=== PATIENT | female | born 1960 | race Caucasian/White ===

== ENCOUNTER → 2019-05-25 15:13 | Outpatient (BNVA) | payer OTHER, SELFPAY | PROVIDERS: Family Provider Nurse Practitioner Family; PCP Nurse Practitioner Family; Visit Provider Specialist | DX: S42.202A Unspecified fracture of upper end of left humerus, initial encounter for closed fracture (principal); X58.XXXA Exposure to other specified factors, initial encounter | CPT/HCPCS: 73030 ==

== ENCOUNTER → 2019-06-23 10:11 | Outpatient (BNVA) | payer OTHER, SELFPAY | PROVIDERS: Family Provider Nurse Practitioner; PCP Nurse Practitioner Family; Visit Provider Specialist | DX: S42.215A Unspecified nondisplaced fracture of surgical neck of left humerus, initial encounter for closed fracture (principal); W19.XXXA Unspecified fall, initial encounter | CPT/HCPCS: 73030 ==

== ENCOUNTER → 2019-07-20 15:35 | Outpatient (BNVA) | payer OTHER, SELFPAY | PROVIDERS: Family Provider Nurse Practitioner; PCP Nurse Practitioner Family; Visit Provider Specialist | DX: S42.212A Unspecified displaced fracture of surgical neck of left humerus, initial encounter for closed fracture (principal); X58.XXXA Exposure to other specified factors, initial encounter | CPT/HCPCS: 73030 ==

== ENCOUNTER 2019-08-03 15:07 | Outpatient (CLI) | payer OTHER, SELFPAY ==
--- NOTE | 2019-08-03 17:30 | MR_ITS ---
WS: [id number] MRI LEFT SHOULDER HISTORY: pain COMPARISON: Shoulder radiograph 07/20/2019 TECHNIQUE: Multiplanar sequences of the shoulder joint are submitted. Examination was terminated early due to patient's pain and inability to continue. Increased T2 signal humeral head and neck. There is a comminuted fracture with healing and multiple f ragments which are not significantly displaced. Additional abnormal signal at the AC joint. There is increase fluid like signal along the acromioclavicular ligament and soft tissue edema. Small amount o f fluid in the subacromial and subdeltoid bursa. No displacement. Mild encroachment upon the myotendi nous insertion of the supraspinatus by the AC joint arthritis. Incomplete evaluation of the rotator cuff as patient was unable to complete the examination due to pa in. There is increased signal in the distal supraspinatus tendon along the articular surface highly s uspicious for tear as seen on the proton density sequence. No full-thickness tear. There is adjacent mild tendinopathy. Additional insertion site increased T2 signal involving the infraspinatus. Subscap ularis is intact. Biceps tendon remains in normal position. No os acromion. No muscle edema or atroph y no labral tear identified. MR/MR shoulder LT wo con* [id number] IMPRESSION: 1. Study terminated early due to patient's pain and discomfort. 2. Comminuted humeral head/neck fracture without displacement. 3. Mild acute acromioclavicular ligament sprain. 4. Partial insertion site tear infraspinatus and highly suspicious for small a rticular surface tear involving the distal supraspinatus.
== END 2019-08-03 15:08 | disposition home or self-care (01) ==
LOC: RADSHAW 15:10
PROVIDERS: Family Provider Nurse Practitioner; PCP Nurse Practitioner Family; Visit Provider Specialist
DX: S42.292A Other displaced fracture of upper end of left humerus, initial encounter for closed fracture (principal); X58.XXXA Exposure to other specified factors, initial encounter
CPT/HCPCS: 73221

== ENCOUNTER → 2020-04-18 16:16 | Outpatient (BNVA) | payer OTHER, SELFPAY | PROVIDERS: Family Provider Nurse Practitioner; PCP Nurse Practitioner Family; Visit Provider Specialist | DX: S42.292D Other displaced fracture of upper end of left humerus, subsequent encounter for fracture with routine healing (principal); M75.42 Impingement syndrome of left shoulder | CPT/HCPCS: 73030 ==

== ENCOUNTER → 2021-04-23 09:05 | Outpatient (BNVA) | payer OTHER, SELFPAY | PROVIDERS: Family Provider Nurse Practitioner; PCP Nurse Practitioner Family; Visit Provider Dermatology | DX: Z01.89 Encounter for other specified special examinations (principal) ==

== ENCOUNTER 2022-06-21 21:28 | Inpatient (IN) | payer OTHER, SELFPAY ==
[2022-06-21 21:35] VITALS: BP 154/81; PULSE 84; RESP 16; TEMP 36.9; O2SAT 92
--- NOTE | 2022-06-21 22:27 | XRR_ITS ---
PROCEDURE INFORMATION: Exam: XR Chest Exam date and time: 06/21/2022 10:41 PM Age: 61 years old Clinical indication: Other: Upper abd pain w/burping; Patient HX: PT C/O upper abdomen pain with a lot of burping. ; Additional info: SOB TECHNIQUE: Imaging protocol: Radiologic exam of the chest. Views: 1 view. COMPARISON: CR XR shoulder LT min 2V* [id number] 04/18/2020 4:22 PM FINDINGS: Lungs: The lungs are hypoinflated. Moderate pulmonary vascular congestion. Pleural spaces: Small bilateral pleural effusions. Bibasilar atelectasis is seen adjacent to the pleural fluid. Heart/Mediastinum: Unremarkable. No cardiomegaly. Bones/joints: Unremarkable. XR/XR chest 1V portable [id number] IMPRESSION: Moderate pulmonary vascular congestion with small bilateral pleural effusions with adjacent bibasilar atelectasis.
--- NOTE | 2022-06-21 22:27 | CTR_ITS ---
PROCEDURE INFORMATION: Exam: CT Abdomen And Pelvis With Contrast Exam date and time: 06/21/2022 11:24 PM Age: 61 years old Clinical indication: Abdominal pain; Prior surgery; Surgery date: 6+ months; Surgery type: Appy; Patient HX: Continual belching, SOB; Additional info: Abd pain TECHNIQUE: Imaging protocol: Computed tomography of the abdomen and pelvis with contrast. Radiation optimization: All CT scans at this facility use at least one of these dose optimization techniques: automated exposure control; mA and/or kV adjustment per patient size (includes targeted exams where dose is matched to clinical indication); or iterative reconstruction. Contrast material: OMNI 350; Contrast volume: 75 ml; Contrast route: INTRAVENOUS (IV); Other protocol: This patient has received 0 known CTs and 0 known cardiac nuclear medicine studies in the 12 months prior to the current study. COMPARISON: CR (CHEST, ) 06/21/2022 10:41 PM RADIATION DOSE METRICS: Total DLP (mGy-cm): 503.86 FINDINGS: Pleural spaces: Moderate bilateral pleural effusions are present, [id number]-[id number]-pspy-left . There is consolidation with air bronchograms in the right middle lobe, lingula in the bilateral lower lobes adjacent to the pleural fluid. Liver: The liver has heterogeneous density likely related to passive hepatic venous congestion. Gallbladder and bile ducts: The gallbladder wall is thickened to 4 mm. No gallstones are seen. Pancreas: Normal. No ductal dilation. Spleen: Normal. No splenomegaly. Adrenal glands: Normal. No mass. Kidneys and ureters: The left kidney has multifocal renal cortical scarring and a 5 mm nephrolith in the midpole. There is also mild scarring in the upper pole of the right kidney. Stomach and bowel: Unremarkable. No obstruction. No mucosal thickening. Appendix: Appendix not visualized consistent with history of appendectomy. Intraperitoneal space: Small volume ascites. Vasculature: Unremarkable. No abdominal aortic aneurysm. Lymph nodes: Unremarkable. No enlarged lymph nodes. Urinary bladder: Unremarkable as visualized. Reproductive: Uterine fibroids are present. Bones/joints: Unremarkable. No acute fracture. Soft tissues: Mild diffuse anasarca. CT/CT abdomen pelvis w con* [id number] IMPRESSION: 1. Moderate aqoga-lynqypi-lrnf-left pleural effusions with adjacent consolidation in the bilateral lung bases suspicious for pneumonia. Correlate with clinical findings. 2. Small volume ascites with mild diffuse anasarca. 3. Gallbladder wall thickening which is nonspecific and may be secondary. Correlate clinically. 4. Heterogeneous liver density likely related to passive hepatic venous congestion.
[2022-06-21 22:37] LABS: Basophils % 0.7 %; Eosinophils # 0.1 10^3/uL (0.0-0.8); Eosinophils % 2.3 %; Hematocrit 45.3 % (37.0-47.0); Hemoglobin 14.6 g/dL (11.5-15.3); Lymphocytes # 1.8 10^3/uL (0.8-4.8); Lymphocytes % 30.1 %; Mean Corpuscular HGB Conc 32.2 g/dL (30.0-36.0); Mean Corpuscular Hemoglobin 28.1 pg (28.0-34.0); Mean Corpuscular Volume 87.1 fl (81-99); Mean Platelet Volume 10.2 fL (7.4-10.4); Monocytes # 0.4 10^3/uL (0.2-0.9); Monocytes % 5.7 %; Neutrophils # 3.73 10^3/uL (1.8-7.7); Nucleated Red Blood Cells % 0 %; Platelet Count 268 10^3/cmm (130-400); Red Cell Distribution Width 13.7 % (12.1-15.1); White Blood Count 6.1 10^3/uL (4.0-10.0)
[2022-06-21] MEDS: lidocaine 2% viscous 15 ML, aluminum-mag hydrox-simethicon 30 ML, sucralfate oral liq 1 GM PO (22:47)
[2022-06-21 22:54] LABS: Troponin(5th) Baseline 28 ng/L (0-10)
[2022-06-21 22:55] LABS: Lactate (Lactic Acid level) 1.2 mmol/L (0.5-2.2)
[2022-06-21 22:59] LABS: Alanine Aminotransferase 14 U/L (0-33); Albumin Level 3.6 g/dL (3.5-5.2); Alkaline Phosphatase 112 U/L (35-105); Anion Gap 10.8 (5-19); Aspartate Amino Transferase 15 U/L (0-32); Blood Urea Nitrogen 7 mg/dL (8-23); C Reactive Protein 3.4 mg/L (0.0-4.9); Calcium 9.3 mg/dL (8.5-10.5); Carbon Dioxide 34 mmol/L (22-29); Chloride 100 mmol/L (98-107); Creatine Phosphokinase 53 U/L (26-192); Creatinine Clr Calc Pharmacy 75.3951; Globulin 2.3 g/dL (1.3-4.6); Glomerular Filtration Rate 85.1 mL/min (90-130); Glucose 266 mg/dL (65-115); Lipase 34 U/L (13-60); NT Pro B Type Natriuretic Pept 5511 pg/mL (0-125); Osmolality Calculated 301 mOsm/kg (285-295); Sodium 142 mmol/L (136-145); Total Bilirubin 0.7 mg/dL (0.15-1.2); Total Protein 5.9 g/dL (6.6-8.7)
[2022-06-21 23:04] LABS: Potassium 2.8 mmol/L (3.5-5.1)
[2022-06-21] MEDS: iohexol 350 mg/mL 500 mL Btl (per mL) IV (23:17)
[2022-06-21] MEDS: potassium chloride ER 20 mEq Tablet 40 MEQ PO (23:48)
[2022-06-21] MEDS: FUROsemide 10 mg/mL SDV 10mL 60 MG IVP (23:49)
[2022-06-21] MEDS: potassium chloride premix 100 ML 50 MEQ IV (23:56)
[2022-06-22] VITALS (9 sets, daily range): BP systolic 95–138; BP diastolic 57–95; PULSE 74–86; RESP 16–20; TEMP 35.9–37.2; O2SAT 90–97
--- NOTE | 2022-06-22 00:32 | W.ED.EXTPRO ---
HPI - Extremity Problem General: Chief complaint: Extremity Problem,Nontraumatic Stated complaint: swelling legs, weakness Time Seen by Provider: 06/21/22 21:55 History of Present Illness: 61-year-old female presenting to the emergency department with multiple complaints including lower extremity swelling, fatigue, frequent belching, and bad gallbladder . Evidently she had an outpatient work-up at an outside facility including an EGD and gallbladder ultrasound. Gallbladder ultrasound showed sludge in the gallbladder. She does not have the results of the EGD yet. She complains of lower extremity swelling, and some fatigue with shortness of breath. She denies any overt chest pain. Room air saturations are 84 to 86% here. She does not use oxygen. She denies cough or fever. MD Complaint: extremity swelling Onset (ago): day(s) Pain Consistency: constant Location: left, right and lower extremity Quality: other Radiation: none Relieving factors: elevation Associated symptoms: Reports short of breath; Deny chest pain or fever(s) Review of Systems Const: Reports: change in weight; Denies: fever(s) ENMT: Denies: throat pain Card: Denies: chest pain or palpitations Resp: Reports: dyspnea; Denies: productive cough or non-productive cough GI: Reports: abdominal pain, nausea and heartburn; Denies: vomiting or diarrhea PFSH ED PFSH: Medical History (Updated 06/22/22 @ 00:41 by Marshall Ro DO) Diabetes Social History Smoking and tobacco status: never smoked Alcohol intake: never Physical Exam Const: GENERAL APPEARANCE: cooperative and frail appearing HENMT: COMMON NORMALS: normocephalic HEAD & SCALP: normocephalic FACE & SINUS: normal facial exam and face symmetric Eye: COMMON NORMALS: Equal, round and reactive pupils present and EOMs intact bilaterally PUPIL: Yes Equal, round and reactive pupils present Chest: CHEST: Yes Symmetrical chest wall rise Resp: COMMON NORMALS: clear to auscultation bilaterally EFFORT & INSPECTION: Yes tachypneic AUSCULTATION: clear to auscultation bilaterally Cardio: COMMON NORMALS: regular rate and regular rhythm RATE: regular rate RHYTHM: regular rhythm GI: COMMON NORMALS: Normal to inspection, nondistended, normoactive bowel sounds present PALPATION: Yes Tenderness to palpation present (GI) (epigastric, mild) Extremity: GENERAL: Yes edema Neuro: LUIS FERNANDO COMA SCALE: document GCS findings [place] coma scale eye opening: Spontaneous [place] coma scale verbal response: Orientated Luis Fernando coma scale motor response: Obey commands Luis Fernando coma scale total score: 15 Psych: COMMON NORMALS: cooperative Course Consultations: Consultation #1: elisa Time: 00:37 Vital Signs: Vital signs: Vital Signs Temperature 98.4 F 06/21/22 21:35 Pulse Rate 80 06/22/22 02:09 Respiratory Rate 16 06/21/22 21:35 Blood Pressure 131/95 06/22/22 02:09 Pulse Oximetry 93 06/22/22 02:09 Oxygen Delivery Me thod 06/22/22 02:40 Oxygen Flow Rate 2 06/22/22 02:09 MDM - Extremity (Nontraumatic) Medical Decision Making 61-year-old female with multiple complaints. Her main complaint is lower extremity edema. Chest x-ray reveals bilateral pleural effusions. Her CBC is normal. BMP shows a potassium of 2.8, which is repleted with oral and IV potassium. Renal function is normal. BNP is significantly elevated. First troponin is slightly elevated. This is a new diagnosis of heart failure in this patient. She is hypoxic. She will require admission for pulmonary support, diuresis, and further work-up. Hospitalist agrees to admit. Lab Data 06/21/22 22:17 06/21/22 22:17 Radiology Impressions Abdomen/Pelvis CT 06/21/22 22:27 IMPRESSION: 1. Moderate nhgwt-fcbvhgl-ohoo-left pleural effusions with adjacent consolidation in the bilateral lung bases suspicious for pneumonia. Correlate with clinical findings. 2. Small volume ascites with mild diffuse anasarca. 3. Gallbladder wall thickening which is nonspecific and may be secondary. Correlate clinically. 4. Heterogeneous liver density likely related to passive hepatic venous congestion. Chest X-Ray 06/21/22 22:27 IMPRESSION: Moderate pulmonary vascular congestion with small bilateral pleural effusions with adjacent bibasilar atelectasis. Laboratory Results WBC 6.1 10^3/uL (4.0-10.0) 06/21/22 22:17 RBC 5.20 10^6/uL (4.1-5.3) 06/21/22 22:17 Hgb 14.6 g/dL (11.5-15.3) 06/21/22 22:17 Hct 45.3 % (37.0-47.0) 06/21/22 22:17 MCV 87.1 fl (81-99) 06/21/22 22:17 MCH 28.1 pg (28.0-34.0) 06/21/22 22:17 MCHC 32.2 g/dL (30.0-36.0) 06/21/22 22:17 RDW 13.7 % (12.1-15.1) 06/21/22 22:17 Plt Count 268 10^3/cmm (130-400) 06/21/22 22:17 MPV 10.2 fL (7.4-10.4) 06/21/22 22:17 Neut % (Auto) 61.0 % 06/21/22 22:17 Lymph % (Auto) 30.1 % 06/21/22 22:17 Rolette % (Auto) 5.7 % 06/21/22 22:17 Eos % (Auto) 2.3 % 06/21/22 22:17 Baso % (Auto) 0.7 % 06/21/22 22: Neut # (Auto) 3.73 10^3/uL (1.8-7.7) 06/21/22 22:17 Lymph # (Auto) 1.8 10^3/uL (0.8-4.8) 06/21/22 22:17 Rolette # (Auto) 0.4 10^3/uL (0.2-0.9) 06/21/22 22:17 Eos # (Auto) 0.1 10^3/uL (0.0-0.8) 06/21/22 22:17 Baso # (Auto) 0.0 10^3/uL (0.0-0.1) 06/21/22 22: Nucleated RBC % (auto) 0 % 06/21/22 22: Nucleated RBCs # 0.0 /100WBC 06/21/22 22:17 Sodium 142 mmol/L (136-145) 06/21/22 22:17 Potassium 2.8 mmol/L (3.5-5.1) L* 06/21/22 22: Chloride 100 mmol/L (98-107) 06/21/22 22:17 Carbon Dioxide 34 mmol/L (22-29) H 06/21/22 22:17 Anion Gap 10.8 (5-19) 06/21/22 22:17 BUN 7 mg/dL (8-23) L 06/21/22 22:17 Creatinine 0.7 mg/dL (0.5-0.9) 06/21/22 22:17 GFR Calculation 85.1 mL/min (90-130) L 06/21/22 22:17 Glucose 266 mg/dL (65-115) H 06/21/22 22:17 Calculated Osmolality 301 mOsm/kg (285-295) H 06/21/22 22:17 Lactate 1.2 mmol/L (0.5-2.2) 06/21/22 22:17 Calcium 9.3 mg/dL (8.5-10.5) 06/21/22 22:17 Total Bilirubin 0.7 mg/dL (0.15-1.2) 06/21/22 22:17 AST 15 U/L (0-32) 06/21/22 22:17 ALT 14 U/L (0-33) 06/21/22 22:17 Alkaline Phosphatase 112 U/L (35-105) H 06/21/22 22:17 Creatine Kinase 53 U/L (26-192) 06/21/22 22:17 Troponin T Baseline 28 ng/L (0-10) H 06/21/22 22:17 Troponin T 120 Minute 30.47 ng/L (0-10) H 06/22/22 00:30 Delta Troponin T 2.47 ABS# (0-10) 06/22/22 00:30 C-Reactive Protein 3.4 mg/L (0.0-4.9) 06/21/22 22:17 NT-Pro-B Natriuret Pep 5511 pg/mL (0-125) H 06/21/22 22:17 Total Protein 5.9 g/dL (6.6-8.7) L 06/21/22 22:17 Albumin 3.6 g/dL (3.5-5.2) 06/21/22 22:17 Globulin 2.3 g/dL (1.3-4.6) 06/21/22 22:17 Lipase 34 U/L (13-60) 06/21/22 22:17 Urine Color Yellow (Yellow) 06/22/22 00:15 Urine Appearance Clear (CLEAR) 06/22/22 00:15 Urine pH 8 (5-7) H 06/22/22 00:15 Ur Specific Mitchell 1.015 (1.005-1.030) 06/22/22 00:15 Urine Protein Neg (Negative) 06/22/22 00:15 Urine Glucose (UA) Norm (Normal) 06/22/22 00:15 Urine Ketones Negative (Negative) 06/22/22 00:15 Urine Blood Neg (Negative) 06/22/22 00:15 Urine Nitrate Negative (Negative) 06/22/22 00:15 Urine Bilirubin Neg (Negative) 06/22/22 00:15 Prot Sulfosalicylic Acd Negative (Negative) 06/22/22 00:15 Urine Urobilinogen Neg mg/dL (Negative) 06/22/22 00:15 Ur Leukocyte Esterase Negative (Negative) 06/22/22 00:15 Discharge Plan Discharge Patient Disposition: Admitted As Inpatient Admit Provider: Gabi Grant Clinical Impression: Acute respiratory failure with hypoxia, Congestive heart failure (CHF) Condition: Stable Coding Level of Care Code ED Rhythmic Gymnastics Coach for Chg Harriet
[2022-06-22 00:53] LABS: Troponin 5 2HR 30.47 ng/L (0-10)
[2022-06-22 00:59] LABS: Troponin 5 2HR Delta 2.47 ABS# (0-10)
[2022-06-22] MEDS: ondansetron 2 mg/ML SDV 2 mL 4 MG IVP (01:12)
[2022-06-22] MEDS: fentaNYL 50 mcg/mL INJ 2mL 25 MCG IVP (01:13)
[2022-06-22 01:15] LABS: Add Urine Microscopic? NO; Charge for UA Resulting for Rev
[2022-06-22 01:33] LABS: Urine Appearance Clear (CLEAR); Urine Color Yellow (Yellow); pH Urine 8 (5-7)
[2022-06-22 01:34] LABS: Bilirubin Urine Neg (Negative); Blood Urine Neg (Negative); Glucose Urine UA Norm (Normal); Ketones Urine Negative (Negative); Leukocyte Esterase Urine Negative (Negative); Nitrate Urine Negative (Negative); Protein Urine Neg (Negative); Specific Gravity, Urine 1.015 (1.005-1.030); Sulfosalicylic Acid Urine Negative (Negative); Urobilinogen Urine Neg (Negative)
--- NOTE | 2022-06-22 01:48 | ECG_ITS ---
[facility] Test Date: 2022-06-22 Pat Name: Tamra Hussein Department: Room: 252 Gender: Female Cryptologist: : 1960 Requested By: Marshall Shields Order Number: [id number] David MD: Wayne Rosado M.D. Measurements Intervals [place] Rate: 80 P: 25 WY: 147 QRS: -14 QRSD: 89 T: 89 QT: 370 QTc: 428 Interpretive Statements SINUS RHYTHM LOW QRS VOLTAGE IN EXTREMITY LEADS [QRS DEFLECTION < 0.5 mV IN LIMB LEADS] INFERIOR MYOCARDIAL INFARCTION , PROBABLY OLD [40+ ms Q WAVE AND/OR ST/T ABNORMALITY IN II/aVF] ANTEROSEPTAL MYOCARDIAL INFARCTION , OF INDETERMINATE AGE [40+ ms Q WAVE IN V1-V4] No previous ECG available for comparison Electronically Signed On 06-22-2022 8:42:51 RADIATION THERAPY TECHNICIAN by Wayne Rosado M.D. [email or web address]
--- NOTE | 2022-06-22 05:06 | P.HP_ITS ---
Providers/Chief Complaint Admitting Physician: Gabi Grant MD Primary Care Provider: Ashu Santos MD Chief Complaint: swelling legs, weakness History of Present Illness Tamra Hussein is a 61 year old female with a past medical history of diabetes mellitus, presented to the hospital with chief complaints of abdominal discomfort, multiple episodes of belching with no significant relief at home. She states that her symptoms have been ongoing for several months, estimates at least 2 to 3 months at best. She was told that she has gallbladder sludge possibly and was scheduled for an outpatient CT scan. Today her symptoms got significantly worse which presented her to to the emergency room. No complaints of nausea vomiting or diarrhea. She has also noticed increasing lower extremity edema over the same timeframe, which she initially attributed to long hours of standing at home. States that usually her edema was dependent and improved after she propped up her feet on pillows, however over the last 2 to 3 months this is also noted to have a new oxygen requirement of 2 L/min upon ER arrival. He was slightly tachypneic initially. CT of her abdomen and pelvis was negative for any acute intracranial abnormalities but showed moderate right greater than left pleural effusions. Small volume ascites and diffuse anasarca. There was gallbladder thickening which was nonspecific. Chest x-ray showed pulmonary vascular congestion and small bilateral pleural effusions. Patient has no past history of CHF. No history of CAD. No history of known valvular abnormalities. No recent major stressors. she has not had an TX in the past. No recent acute viral illnesses. He is vaccinated against flu and COVID. Endorses some orthopnea, no chest pain palpitations or syncope. Review of Systems General: Reports: 10 or more systems reviewed and unremarkable except in HPI and below Const: Denies: fever(s), chills or body aches Eyes: Denies: change in vision, blurry vision or photophobia ENMT: Reports: hoarseness; Denies: throat pain, enlarged tonsils, odynophagia or nasal congestion Card: Denies: chest pain, palpitations, irregular heart rhythm, edema, swelling of feet/ankles, lightheadedness, pre-syncope, dyspnea on exertion or orthopnea Resp: Denies: dyspnea, productive cough, non-productive cough, wheezing, stridor, pain on inspiration, change in phlegm color, hemoptysis or chest congestion GI: Denies: abdominal pain, nausea, vomiting, hematemesis, coffee ground emesis, dysphagia, heartburn, diarrhea, constipation, GI cramping, change in stool character, hematochezia or melena : Denies: flank pain, difficulty voiding, dysuria, urinary frequency, urinary urgency, urinary hesitancy or hematuria Musc: Denies: neck pain, back pain, extremity pain, joint swelling, joint warmth or deformity Neuro: Denies: headache(s), numbness in extremities, weakness in extremities, sensory changes, difficulty walking, frequent falls, dizziness, vertigo, behavioral changes, Slurred speech present or seizure-like activity Psych: Denies: anxiety, depression, suicidal ideation or homicidal ideation Endo: Denies: polyuria, polydipsia, tired all the time, cold intolerance or hot flashes Shady/Lymph: Denies: easy bruising or easy bleeding Medications/Allergies Home Medications Medication Instructions Recorded Confirmed Last Taken Type celecoxib 200 mg capsule (Celebrex) 200 mg PO ONCE 05/25/19 04/18/20 Unknown History celecoxib 200 mg capsule (Celebrex) 200 mg PO ONCE #30 caps 05/25/19 04/18/20 Unknown Rx metformin 500 mg tablet 500 mg PO ONCE 05/25/19 04/18/20 Unknown History vitamin B complex (B 1 tab PO ONCE 05/25/19 04/18/20 Unknown History Complex-Vitamin B12 tablet) Allergies Allergy/AdvReac Type Severity Reaction Status Date / Time codeine Allergy Unknown Verified 06/21/22 21:40 shahrzad Allergy Unknown Verified 06/21/22 21:40 trazodone Allergy Unknown Verified 06/21/22 21:40 PFSH Acute PFSH: Medical History (Updated 06/22/22 @ 06:14 by Gabi Grant MD) Diabetes Social History Smoking and tobacco status: never smoked Alcohol intake: never Vitals/I&O/Wt Last Vital Signs Temp 98.4 F 06/21/22 21:35 Pulse 80 06/22/22 02:09 Resp 16 06/21/22 21:35 BP 131/95 06/22/22 02:09 Pulse Ox 93 06/22/22 02:09 O2 Del Method 06/22/22 02:40 O2 Flow Rate 2 06/22/22 02:09 06/21/22 06/21/22 06/22/22 14:59 22:59 06:59 Intake Total 100 / 100 Balance 100 / 100 Weight last 48 hrs Weight 59.421 kg Physical Exam Narrative: General: No acute distress, AO x3 HEENT: PERRLA, pupils bilaterally equal and reactive, pallors not present Chest: Normal vesicular breath sounds, no added sounds, reduced air entry bila terally CVS: S1-S2 regular, no murmurs, no tachycardia, no gallops, no rubs Abdomen: Soft, nontender, no organomegaly, bowel sounds present Neuro: No focal deficits, no facial deformity, AO x3, power 5/5 in all limbs Extremities: Pitting edema over bilateral feet, left greater than right Data 06/21/22 22:17 06/21/22 22:17 Other Labs: Radiology Impressions Abdomen/Pelvis CT 06/21/22 22:27 IMPRESSION: 1. Moderate tblis-[id number]-left pleural effusions with adjacent consolidation in the bilateral lung bases suspicious for pneumonia. Correlate with clinical findings. 2. Small volume ascites with mild diffuse anasarca. 3. Gallbladder wall thickening which is nonspecific and may be secondary. Correlate clinically. 4. Heterogeneous liver density likely related to passive hepatic venous congestion. Chest X-Ray 06/21/22 22:27 IMPRESSION: Moderate pulmonary vascular congestion with small bilateral pleural effusions with adjacent bibasilar atelectasis. Laboratory Results WBC 5.5 10^3/uL (4.0-10.0) 06/22/22 04:32 RBC 5.14 10^6/uL (4.1-5.3) 06/22/22 04:32 Hgb 14.5 g/dL (11.5-15.3) 06/22/22 04:32 Hct 45.3 % (37.0-47.0) 06/22/22 04:32 MCV 88.1 fl (81-99) 06/22/22 04:32 MCH 28.2 pg (28.0-34.0) 06/22/22 04:32 MCHC 32.0 g/dL (30.0-36.0) 06/22/22 04:32 RDW 13.9 % (12.1-15.1) 06/22/22 04:32 Plt Count 262 10^3/cmm (130-400) 06/22/22 04:32 MPV 10.8 fL (7.4-10.4) H 06/22/22 04:32 Neut % (Auto) 55.2 % 06/22/22 04:32 Lymph % (Auto) 34.8 % 06/22/22 04:32 Harvey % (Auto) 6.5 % 06/22/22 04:32 Eos % (Auto) 2.4 % 06/22/22 04:32 Baso % (Auto) 0.9 % 06/22/22 04:32 Neut # (Auto) 3.05 10^3/uL (1.8-7.7) 06/22/22 04:32 Lymph # (Auto) 1.9 10^3/uL (0.8-4.8) 06/22/22 04:32 Harvey # (Auto) 0.4 10^3/uL (0.2-0.9) 06/22/22 04:32 Eos # (Auto) 0.1 10^3/uL (0.0-0.8) 06/22/22 04:32 Baso # (Auto) 0.1 10^3/uL (0.0-0.1) 06/22/22 04:32 Nucleated RBC % (auto) 0 % 06/22/22 04:32 Nucleated RBCs # 0.0 /100WBC 06/22/22 04:32 Sodium 146 mmol/L (136-145) H 06/22/22 04:32 Potassium 3.1 mmol/L (3.5-5.1) L 06/22/22 04:32 Chloride 102 mmol/L (98-107) 06/22/22 04:32 Carbon Dioxide 36 mmol/L (22-29) H 06/22/22 04:32 Anion Gap 11.1 (5-19) 06/22/22 04:32 BUN 6 mg/dL (8-23) L 06/22/22 04:32 Creatinine 0.6 mg/dL (0.5-0.9) 06/22/22 04:32 GFR Calculation 101.6 mL/min (90-130) 06/22/22 04:32 Glucose 216 mg/dL (65-115) H 06/22/22 04:32 Estimat Average Glucose 272 06/22/22 04:32 Hemoglobin A1c 11.1 % (4.0-6.0) H 06/22/22 04:32 Calculated Osmolality 306 mOsm/kg (285-295) H 06/22/22 04:32 Lactate 1.2 mmol/L (0.5-2.2) 06/21/22 22:17 Calcium 9.0 mg/dL (8.5-10.5) 06/22/22 04:32 Total Bilirubin 0.6 mg/dL (0.15-1.2) 06/22/22 04:32 AST 16 U/L (0-32) 06/22/22 04:32 ALT 13 U/L (0-33) 06/22/22 04:32 Alkaline Phosphatase 113 U/L (35-105) H 06/22/22 04:32 Creatine Kinase 53 U/L (26-192) 06/21/22 22:17 Troponin T Baseline 28 ng/L (0-10) H 06/21/22 22:17 Troponin T 120 Minute 30.47 ng/L (0-10) H 06/22/22 00:30 Delta Troponin T 2.47 ABS# (0-10) 06/22/22 00:30 Troponin T Hi Sens 6Hr 30.71 ng/L (0-10) H 06/22/22 04:32 Troponin T Hi Sens 6Hr Delta 2.71 ng/L (0-12) 06/22/22 04:32 C-Reactive Protein 3.4 mg/L (0.0-4.9) 06/21/22 22:17 NT-Pro-B Natriuret Pep 5511 pg/mL (0-125) H 06/21/22 22:17 Total Protein 5.8 g/dL (6.6-8.7) L 06/22/22 04:32 Albumin 3.5 g/dL (3.5-5.2) 06/22/22 04:32 Globulin 2.3 g/dL (1.3-4.6) 06/22/22 04:32 Triglycerides 97 mg/dL (0-150) 06/22/22 04:32 Cholesterol 152 mg/dL (0-200) 06/22/22 04:32 LDL Cholesterol, Calc 90 mg/dL (50-129) 06/22/22 04:32 HDL Cholesterol 43 mg/dL (60-100) L 06/22/22 04:32 LDL/HDL Ratio 2.09 RATIO (0.00-3.22) 06/22/22 04:32 Cholesterol/HDL Ratio 3.53 mg/dL (0.0-4.40) 06/22/22 04:32 Lipase 34 U/L (13-60) 06/21/22 22:17 Urine Color Yellow (Yellow) 06/22/22 00:15 Urine Appearance Clear (CLEAR) 06/22/22 00:15 Urine pH 8 (5-7) H 06/22/22 00:15 Ur Specific Hoven 1.015 (1.005-1.030) 06/22/22 00:15 Urine Protein Neg (Negative) 06/22/22 00:15 Urine Glucose (UA) Norm (Normal) 06/22/22 00:15 Urine Ketones Negative (Negative) 06/22/22 00:15 Urine Blood Neg (Negative) 06/22/22 00:15 Urine Nitrate Negative (Negative) 06/22/22 00:15 Urine Bilirubin Neg (Negative) 06/22/22 00:15 Prot Sulfosalicylic Acd Negative (Negative) 06/22/22 00:15 Urine Urobilinogen Neg mg/dL (Negative) 06/22/22 00:15 Ur Leukocyte Esterase Negative (Negative) 06/22/22 00:15 A&P Assessment and plan (1) Anasarca: (2) Congestive heart failure (CHF): (3) Hypoxia: (4) Diabetes mellitus: Plan Patient presenting today with plaints of vague abdominal discomfort, excessive belching, worsening lower extremity edema and dyspnea, found upon evaluation to have anasarca, pulmonary congestion, bilateral pleural effusions. CT of the abdomen and pelvis negative for acute process except for gallbladder wall thickness which is nonspecific. No Ramon sign. LFTs are normal except for mildly elevated alkaline phosphatase. Patient's symptoms do not appear to correlate with acute cholecystitis. Liver has heterogeneous density thought to be related to hepatic congestion on CT abdomen. Noted to have bilateral pleural effusions, small volume ascites and lower extremity edema. No consolidation per personal review of CT images. Clinically no symptoms of pneumonia. Clinically patient appears to have heart failure. This is a suspected diagnosis at this time therefore not known whether this will be systolic or diastolic or acute or chronic. EKG shows sinus rhythm with low voltage complexes, no acute ST-T wave abnormalities. Mildly elevated troponin in the 30s range, no significant delta at 2 or 6 hours. Less likely ACS. We will obtain echocardiogram to estimate cardiac function and assess valvular status. Additionally lower extremity edema is asymmetric, left greater than right. We will check lower extremity duplex for DVT. She has received Lasix 60 mg IV in the emergency room. We will start her on Lasix 40 mg IV daily, closely monitor urine output and renal function. Dose may need to be titrated based on response. Last HbA1c from 1 year ago at 13, will recheck today we will assess diabetic control. Currently she has normal renal function, unlikely renal causes of anasarca. Albumin normal at 3.5, less likely to be contributing Start Protonix 40 mg twice daily and assess for symptomatic relief of abdominal pain. Further orders will be dependent on results of echocardiogram. Attestations Medical Necessity Statement*: Greater than 2 midnight admission is anticipated for evaluation of anasarca, suspected CHF, pending studies as above Coding Level of Care Code Acute Code for Chg Fwd Moderate MDM includes number and complexity of problems actively addressed rich adam encounter, amount and/or complexity of data reviewed/ordered and described risk of complication, morbidity or mortality of management as documented Diagnoses Anasarca R60.1 Congestive heart failure (CHF) I50.9 Hypoxia R09.02 Diabetes mellitus E11.9
--- NOTE | 2022-06-22 05:08 | USCV_ITS ---
Keenan Tamra Age: 61 Gender: F : 1960 Exam Date: 06/22/2022 14:05 Ordering Phys: Gabi Grant MD Technologist: JOANN Exam Location: [facility] [place] Indication: chf BP: / HR: 79 Rhythm: Sinus Technical Quality: Adequate MEASUREMENTS (Male / Female) Normal Values 2D ECHO LV Diastolic Diameter PLAX 5.6 cm 4.2 - 5.9 / 3.9 - 5.3 cm LV Systolic Diameter PLAX 4.8 cm IVS Diastolic Thickness 0.6 cm 0.6 - 1.0 / 0.6 - 0.9 cm IVS Systolic Thickness 0.6 cm LVPW Diastolic Thickness 0.7 cm 0.6 - 1.0 / 0.6 - 0.9 cm LVPW Systolic Thickness 0.9 cm LVOT Diameter 2.0 cm LV Ejection Fraction 2D Teich 28.2 % LV Ejection Fraction MOD 2C 23.0 % LV Ejection Fraction 2C AL 21.8 % LA Diameter 4.1 cm IVC Diameter 1.9 cm M-MODE Aortic Annulus Diameter 2.8 cm LA Ao Ratio MM 1.6 MV E Point Septal Separation 1.4 cm DOPPLER AV Peak Velocity 127.0 cm/s LVOT Peak Velocity 92.0 cm/s AV Area Cont Eq vti 2.4 cm squared AV Area Cont Eq pk 2.3 cm squared MV Area PHT 5.8 cm squared Mitral E to A Ratio 1.5 MV E' Velocity 54.5 cm/s Mitral E to MV E' Ratio 13.6 Mitral E to LV E' Lateral Ratio 10.1 Mitral E to LV E' Septal Ratio 21.1 TR Peak Velocity 201.3 cm/s TR Peak Gradient 16.2 mmHg Right Atrial Pressure 3.0 mmHg Pulmonary Artery Systolic Pressu 19.2 mmHg PV Peak Velocity 88.0 cm/s FINDINGS Left Ventricle Ventricle is normal in size. There are regional wall motion disturbances. The mid anterior wall, apical anterior wall and apical septum are all akinetic. The very apex is dyskinetic. The lateral wall appears to contract normally aside from some mild hypokinesis in the apical lateral area. The overall ejection fraction is 30 to 35%. The inferior and posterior dumont appear to contract normally. Grade 2 diastolic dysfunction Right Ventricle Normal right ventricular size and function Right Atrium The right atrium is normal in size. Left Atrium The left atrium is normal in size. Mitral Valve Structurally normal mitral valve. Trace mitral regurgitation Aortic Valve Structurally normal aortic valve without significant sclerosis or stenosis. There is no aortic regurgitation. Tricuspid Valve Structurally normal tricuspid valve without significant stenosis or regurgitation. Pulmonary artery systolic pressure is normal. Pulmonic Valve Pulmonic valve not well seen Pericardium Normal pericardium without effusion. Aorta Normal ascending aorta dimension. IVC The inferior vena cava appears normal. CONCLUSIONS Ventricle is normal in size. There are regional wall motion disturbances. The mid anterior wall, apical anterior wall and apical septum are all akinetic. The very apex is dyskinetic. The lateral wall appears to contract normally aside from some mild hypokinesis in the apical lateral area. The overall ejection fraction is 30 to 35%. The inferior and posterior dumont appear to contract normally. Grade 2 diastolic dysfunction. Structurally normal mitral valve. Trace mitral regurgitation. The study suggests coronary artery disease and a previous myocardial infarction in the distribution of the left anterior descending coronary artery. No prior studies for comparison. Dr. Wayne Rosado MD (Electronically Signed) Final Date: 23 June 2022 10:08 S
[2022-06-22 05:25] LABS: Basophils # 0.1 10^3/uL (0.0-0.1); Basophils % 0.9 %; Eosinophils # 0.1 10^3/uL (0.0-0.8); Eosinophils % 2.4 %; Hematocrit 45.3 % (37.0-47.0); Hemoglobin 14.5 g/dL (11.5-15.3); Lymphocytes # 1.9 10^3/uL (0.8-4.8); Lymphocytes % 34.8 %; Mean Corpuscular Hemoglobin 28.2 pg (28.0-34.0); Mean Corpuscular Volume 88.1 fl (81-99); Mean Platelet Volume 10.8 fL (7.4-10.4); Monocytes # 0.4 10^3/uL (0.2-0.9); Monocytes % 6.5 %; Neutrophils # 3.05 10^3/uL (1.8-7.7); Neutrophils % 55.2 %; Nucleated Red Blood Cells % 0 %; Platelet Count 262 10^3/cmm (130-400); Red Blood Count 5.14 10^6/uL (4.1-5.3); Red Cell Distribution Width 13.9 % (12.1-15.1); White Blood Count 5.5 10^3/uL (4.0-10.0)
[2022-06-22] MEDS: FUROsemide 10 mg/mL SDV 4mL 40 MG IVP ×2 (05:26→18:52)
[2022-06-22] MEDS: enoxaparin 40 mg/0.4 mL Syringe SUBCUT (05:26)
[2022-06-22 05:50] LABS: Estmated Average Glucose 272; Hemoglobin A1C 11.1 % (4.0-6.0)
[2022-06-22 05:52] LABS: Alanine Aminotransferase 13 U/L (0-33); Albumin Level 3.5 g/dL (3.5-5.2); Alkaline Phosphatase 113 U/L (35-105); Anion Gap 11.1 (5-19); Aspartate Amino Transferase 16 U/L (0-32); Blood Urea Nitrogen 6 mg/dL (8-23); Carbon Dioxide 36 mmol/L (22-29); Chloride 102 mmol/L (98-107); Chol HDL Ratio 3.53 mg/dL (0.0-4.40); Cholesterol 152 mg/dL (0-200); Globulin 2.3 g/dL (1.3-4.6); Glomerular Filtration Rate 101.6 mL/min (90-130); Glucose 216 mg/dL (65-115); HDL Cholesterol 43 mg/dL (60-100); LDL Cholesterol Calculated 90 mg/dL (50-129); LDL HDL Ratio 2.09 RATIO (0.00-3.22); Osmolality Calculated 306 mOsm/kg (285-295); Potassium 3.1 mmol/L (3.5-5.1); Sodium 146 mmol/L (136-145); Total Bilirubin 0.6 mg/dL (0.15-1.2); Total Protein 5.8 g/dL (6.6-8.7); Triglycerides 97 mg/dL (0-150)
--- NOTE | 2022-06-22 06:01 | USR_ITS ---
PROCEDURE INFORMATION: Exam: US Duplex Lower Extremity Veins, Bilateral Exam date and time: 06/22/2022 2:34 PM Age: 61 years old Clinical indication: Edema, localized; Lower extremity, bilateral; Additional info: Evalaute for dvt, le edema, l> R TECHNIQUE: Imaging protocol: Real-time duplex ultrasound of the bilateral extremities with 2-D ken scale, color Doppler flow and spectral waveform analysis including responses to compression and other maneuvers (when performed) with image documentation. Complete exam focused on the lower extremity veins. COMPARISON: CT abdomen pelvis w con* [id number] 06/21/2022 11:24 PM FINDINGS: Right deep veins: Unremarkable. The common femoral, femoral, proximal profunda femoral and popliteal veins are patent without thrombus. Normal Doppler waveforms. Normal compressibility and/or augmentation response. Right superficial veins: Saphenofemoral junction is patent without thrombus. Left deep veins: Unremarkable. The common femoral, femoral, proximal profunda femoral and popliteal veins are patent without thrombus. Normal Doppler waveforms. Normal compressibility and/or augmentation response. Left superficial veins: Saphenofemoral junction is patent without thrombus. Soft tissues: Subcutaneous edema in the lower extremities. US/[place] [id number] IMPRESSION: No evidence of deep vein thrombosis.
[2022-06-22 06:03] LABS: Troponin 5 6HR 30.71 ng/L (0-10)
[2022-06-22 06:04] LABS: Troponin 5 6HR Delta 2.71 ng/L (0-12)
[2022-06-22] MEDS: potassium chloride ER 20 mEq Tablet 40 MEQ PO ×2 (06:30→13:16)
[2022-06-22 07:20] LABS: D Dimer 0.97 ug/mIFEU (0-0.59)
[2022-06-22 07:37] LABS: Glucose Point of Care 201 mg/dL (70-110)
[2022-06-22] MEDS: piperacillin-tazobactam 3.375 GM in sodium chloride 0.9% (plus) 50 ML IV ×2 (09:39→18:47)
[2022-06-22] MEDS: aspirin 81 mg EC Tablet PO (09:40)
[2022-06-22] MEDS: pantoprazole DR 40 mg Tablet PO ×2 (09:40→18:47)
[2022-06-22] MEDS: insulin lispro 100 unit/1 mL SUBCUT ×3 (09:42→21:32)
--- NOTE | 2022-06-22 10:12 | CTR_ITS ---
PROCEDURE INFORMATION: Exam: CTA Chest With Contrast Exam date and time: 06/22/2022 10:26 AM Age: 61 years old Clinical indication: Shortness of breath; Additional info: Coug, SOB, elevated d dimer TECHNIQUE: Imaging protocol: Computed tomographic angiography of the chest with contrast. 3D rendering (Not supervised by radiologist): MIP and/or 3D reconstructed images were created by the technologist. Radiation optimization: All CT scans at this facility use at least one of these dose optimization techniques: automated exposure control; mA and/or kV adjustment per patient size (includes targeted exams where dose is matched to clinical indication); or iterative reconstruction. Contrast material: OMNI 350; Contrast volume: 69 ml; Contrast route: INTRAVENOUS (IV); Other protocol: This patient has received [address] and 0 known cardiac nuclear medicine studies in the 12 months prior to the current study. COMPARISON: CR (CHEST, ) 06/21/2022 10:41 PM RADIATION DOSE METRICS: Total DLP (mGy-cm): 250.2 FINDINGS: Pulmonary arteries: Normal. No pulmonary emboli. Aorta: Unremarkable. No aortic aneurysm. No aortic dissection. Other arteries: Mild diffuse atherosclerotic disease is present. Thyroid: Goiter noted, involving mainly the right thyroid lobe. Lungs: There is slight mosaic pattern of attenuation of the lungs, in association with paraseptal thickening and moderate to large bilateral pleural effusions, which in the setting of cardiomegaly is consistent with pulmonary edema. Compressive bilateral atelectasis noted. No pneumothorax. Pleural spaces: See Lungs finding. Heart: Mildly enlarged heart. Coronary atherosclerotic calcifications seen. No pericardial effusion. Lymph nodes: Unremarkable. No enlarged lymph nodes. Kidneys and ureters: Nonspecific and incompletely imaged hyperdense focus in the lateral right upper kidney and tiny hyperdense focus in the left upper kidney, which are too small to characterize. Bones/joints: AVN changes of the left humeral head noted. No acute fracture. Soft tissues: Unremarkable. CT/CT angio chest PE protcl [id number] IMPRESSION: 1. No pulmonary embolus. 2. Pulmonary edema with moderate to large bilateral pleural effusions. 3. Bilateral compressive atelectasis.
[2022-06-22 10:29] LABS: Magnesium 1.9 mg/dL (1.7-2.3); Phosphorus 3.5 mg/dL (2.5-4.5)
[2022-06-22] MEDS: iohexol 350 mg/mL 500 mL Btl (per mL) IV (10:36)
[2022-06-22 10:37] LABS: Free T4 Free Thyroxine 1.38 ng/dL (0.82-1.77); T3 Free 3.3 PG/ML (2.0-4.4); Thyroid Stimulating Hormone 4.23 uIU/mL (0.27-4.20)
[2022-06-22 10:42] LABS: Hepatitis A Antibody IgM Non-Reactive (Nonreactive); Hepatitis B Core IgM Non-Reactive (Nonreactive); Hepatitis B Surface Antigen Non-Reactive (Nonreactive); Hepatitis C Virus Antibody Non-Reactive (Nonreactive)
[2022-06-22 10:47] LABS: C Reactive Protein 3.7 mg/L (0.0-4.9)
[2022-06-22 11:07] LABS: Gamma Glutamyl Transferase 129 U/L (5-36)
[2022-06-22] MEDS: metOLazone 5 MG Tablet PO (11:23)
[2022-06-22] MEDS: metoclopramide 10 mg Tablet 5 MG PO (11:23)
[2022-06-22 12:13] LABS: Glucose Point of Care 259 mg/dL (70-110)
[2022-06-22 12:29] LABS: Anion Gap 11.4 (5-19); Blood Urea Nitrogen 6 mg/dL (8-23); Calcium 9.4 mg/dL (8.5-10.5); Carbon Dioxide 39 mmol/L (22-29); Chloride 98 mmol/L (98-107); Glomerular Filtration Rate 101.6 mL/min (90-130); Glucose 312 mg/dL (65-115); Osmolality Calculated 309 mOsm/kg (285-295); Potassium 3.4 mmol/L (3.5-5.1); Sodium 145 mmol/L (136-145)
--- NOTE | 2022-06-22 12:30 | P.PN_ITS ---
Subjective Subjective: Patient was examined this morning, family members at bedside -She tells me that she has had over 100 pound weight loss in the last few months -She was a diabetic to her knowledge but she was taken off a lot of her diabetic medications due to her substantial weight loss -She complains of shortness of breath with minimal exertion that is progressively gotten worse -Does report a remote history of smoking, she does report that she has been told she has COPD -Does report having an EGD due to chronic cough, productive cough -She also had a EGD because she has chronic belching bloating abdominal d istention she has not been told the results yet it was done through Dr. Santos's office -Denies ever history of CAD or chest pain, she never been told that she has CHF -She is also been told that she has some gallbladder sludge in her gallbladder has to be removed however it has not come to fruition as of yet -She is also been told that she has some hyperdense focus in her kidneys that his primary care physician is worried about -I went over patient's test results extensively for with her -I discussed our evidence of fluid overload, acute heart failure requiring diuresis -The findings on her CT angiogram of the chest that shows bilateral pleural effusions that will require thoracocentesis -She could possibly have a pneumonia she has a lot of compressive atelectasis I have her on Zosyn just in case for possible aspiration we will do a speech therapy eval -She does have gallbladder wall thickening with her abdominal distention and bloating and belching I am ordering a gallbladder ultrasound placed on Zosyn -The CT scan did show some changes in her kidneys, they look more like cortical scarring, as per the report I will have her follow-up with urology -In terms of her weight loss, etiology is unclear at this time, we will see with pathology from the thoracocentesis -She might require a HIDA scan at some point or MRCP -She tells me she has a history of hypothyroidism and she stopped taking levothyroxine -She tells me that she continues to have bloating, belching and she does not know why, Vitals/I&O/Wt Last Vital Signs Temp 97.6 F 06/22/22 08:00 Pulse 75 06/22/22 08:00 Resp 18 06/22/22 08:00 BP 138/79 06/22/22 08:00 Pulse Ox 97 06/22/22 08:00 O2 Del Method 06/22/22 08:00 O2 Flow Rate 2 06/22/22 08:00 06/21/22 06/22/22 06/22/22 22:59 06:59 14:59 Intake Total 100 / 100 Output Total 1200 / 1200 Balance 100 / 100 -1200 / -1200 Weight last 48 hrs Weight 59.421 kg Physical Exam Const: COMMON NORMALS: no acute distress OTHER: Has evidence of significant weight loss, skin folds, protein calorie malnutrition, with muscle wasting peripheral muscle wasting in arms and legs, temporal muscle wasting Neck/C-Spine: OTHER: Has cervical lymphadenopathy Resp: COMMON NORMALS: normal respiratory effort, No retractions and No use of accessory muscles OTHER: Decreased breath sounds bilateral lung bases Cardio: COMMON NORMALS: regular rate, regular rhythm, S1 normal heart sound present and S2 normal heart sound present RATE: regular rate RHYTHM: regular rhythm HEART SOUNDS: S1 normal heart sound present and S2 normal heart sound present GI: COMMON NORMALS: Normal to inspection, nondistended, normoactive bowel so unds present and non-tender Extremity: NARRATIVE EXTREMITY EXAM: 1+ edema Psych: COMMON NORMALS: mental status grossly normal Data 06/22/22 04:32 06/22/22 10:06 Micro: Microbiology 06/22/22 10:09 Blood Culture - Preliminary Blood SPECIMEN COLLECTED 06/22/22 10:06 Blood Culture - Preliminary Blood SPECIMEN COLLECTED A&P Assessment and plan (1) Anasarca: (2) Congestive heart failure (CHF): (3) Hypoxia: (4) Diabetes mellitus: (5) Systolic and diastolic CHF, acute: (6) Bilateral pleural effusion: (7) Compressive atelectasis: (8) Hepatic congestion: (9) Ascites: (10) Thickening of wall of gallbladder: (11) Renal scarring: (12) Pulmonary edema: (13) Avascular necrosis of left femoral head: (14) Weight loss: (15) Goals of care, counseling/discussion: (16) Protein calorie malnutrition: (17) Muscular deconditioning: (18) Hypokalemia: (19) Diabetic gastroparesis: (20) Hypothyroidism: (21) Chronic cough: (22) Cervical lymphadenopathy: (23) NSTEMI (non-ST elevated myocardial infarction): (24) Acute respiratory failure with hypoxia: Plan Bloating, belching -Status post EGD at Dr. Sharma's office, will have to reach out to him tomorrow for results -It sounds a lot like diabetic gastroparesis given her elevated A1c -I have placed on Reglan 5 mg p.o. twice daily will try for a day and see if that improves her symptoms if so then it is a viable option -Try simethicone Chronic cough -Does have a history of smoking, reported history of COPD -She does have cervical lymphadenopathy on examination -I would probably have her referred to ENT for nasal laryngeal endoscopy on discharge 3 ENT History of hypothyroidism -Start levothyroxine 25 mcg once daily Hypokalemia, replace p.o. Evidence of ascites, congestive hepatopathy -Likely from heart failure, monitor History of gallbladder sludge, CT scan shows gallbladder wall thickening on examination no significant right upper quadrant tenderness -Nonetheless we will place her on Zosyn -Gallbladder ultrasound -Might need a HIDA scan patient with good progress CT shows AVN left femoral head needs to follow-up with orthopedic service as outpatient CT does show renal scarring bilaterally need to follow-up with urology as outpatient Acute systolic diastolic CHF exacerbation -Lasix 40 IV twice daily, with metolazone once -Monitor serum potassium, creatinine, magnesium -Continue telemetry monitoring -Monitor urine output -Cardiac echocardiogram pending Bilateral pleural effusions -I have ordered a thoracocentesis for tomorrow -Studies ordered Pulm edema as above, with respiratory failure, hypoxia, continue diuresis Acute hypoxic respiratory failure secondary to above NSTEMI -Likely supply demand ischemia from acute systolic diastolic CHF exacerbation -However cannot rule out underlying cardiac etiology, continue to monitor -Aspirin, statin Compressive atelectasis bilateral lungs -With her chronic cough could be an underlying pneumonia -Although known to go cytosis, no significant inflammatory marker elevation -Continue Zosyn for now -Follow cultures Type 2 diabetes mellitus, hemoglobin A1c 11 -Lantus 5 units every 24 hours with low-dose sliding scale Diabetic gastroparesis as above Weight loss over 100 pounds, monitor will require colonoscopy, mammogram at some point Protein calorie malnutrition, consult dietary Consults speech therapy Physical deconditioning, muscle wasting, PT OT protein shakes twice daily Lovenox for DVT prophylaxis Goals of care full code Attestations Medical Necessity Statement*: Patient requires hospitalization for acute hypoxic respiratory failure, acute systolic diastolic CHF exacerbation, compressive atelectasis bilateral lung possible underlying pneumonia, diabetic gastroparesis, weight loss, particularly malnutrition NSTEMI, hypokalemia Diagnoses Anasarca R60.1 Congestive heart failure (CHF) I50.9 Hypoxia R09.02 Diabetes mellitus E11.9 Systolic and diastolic CHF, acute I50.41 Bilateral pleural effusion J90 Compressive atelectasis J98.11 Hepatic congestion K76.1 Ascites R18.8 Thickening of wall of gallbladder K82.8 Renal scarring N28.89 Pulmonary edema J81.1 Avascular necrosis of left femoral head M87.052 Weight loss R63.4 Goals of care, counseling/discussion Z71.89 Protein calorie malnutrition E46 Muscular deconditioning R29.898 Hypokalemia E87.6 Diabetic gastroparesis E11.43; K31.84 Hypothyroidism E03.9 Chronic cough R05.3 Cervical lymphadenopathy R59.0 NSTEMI (non-ST elevated myocardial infarction) I21.4 Acute respiratory failure with hypoxia J96.01
--- NOTE | 2022-06-22 13:54 | PC.OT ---
OT evaluation completed, services not indicated at this time.
[2022-06-22] MEDS: insulin glargine 100 units/1 mL 5 UNIT SUBCUT (15:53)
[2022-06-22 17:07] LABS: Glucose Point of Care 106 mg/dL (70-110)
[2022-06-22 20:11] LABS: Glucose Point of Care 249 mg/dL (70-110)
[2022-06-23] VITALS (9 sets, daily range): BP systolic 92–114; BP diastolic 54–67; PULSE 69–91; RESP 17–18; TEMP 36.5–37.4; O2SAT 90–97
[2022-06-23] MEDS: metoclopramide 10 mg Tablet 5 MG PO (00:13)
[2022-06-23] MEDS: piperacillin-tazobactam 3.375 GM in sodium chloride 0.9% (plus) 50 ML IV ×3 (01:15→18:01)
[2022-06-23 05:41] LABS: Basophils # 0.1 10^3/uL (0.0-0.1); Eosinophils # 0.2 10^3/uL (0.0-0.8); Hematocrit 43.4 % (37.0-47.0); Lymphocytes # 2.1 10^3/uL (0.8-4.8); Lymphocytes % 29.6 %; Mean Corpuscular HGB Conc 32.3 g/dL (30.0-36.0); Mean Corpuscular Hemoglobin 28.5 pg (28.0-34.0); Mean Corpuscular Volume 88.4 fl (81-99); Mean Platelet Volume 10.5 fL (7.4-10.4); Monocytes # 0.5 10^3/uL (0.2-0.9); Monocytes % 7.1 %; Neutrophils # 4.09 10^3/uL (1.8-7.7); Nucleated Red Blood Cells % 0 %; Platelet Count 254 10^3/cmm (130-400); Red Blood Count 4.91 10^6/uL (4.1-5.3); Red Cell Distribution Width 14.1 % (12.1-15.1); White Blood Count 6.9 10^3/uL (4.0-10.0)
[2022-06-23] MEDS: levothyroxine 25 mcg Tablet PO (05:48)
[2022-06-23] MEDS: enoxaparin 40 mg/0.4 mL Syringe SUBCUT (05:49)
[2022-06-23] MEDS: insulin glargine 100 units/1 mL 5 UNIT SUBCUT (06:10)
[2022-06-23 06:15] LABS: Anion Gap 9.8 (5-19); Blood Urea Nitrogen 6 mg/dL (8-23); Calcium 9.1 mg/dL (8.5-10.5); Carbon Dioxide 40 mmol/L (22-29); Chloride 93 mmol/L (98-107); Creatinine Clr Calc Pharmacy 75.3951; Glomerular Filtration Rate 85.1 mL/min (90-130); Glucose 110 mg/dL (65-115); NT Pro B Type Natriuretic Pept 3957 pg/mL (0-125); Osmolality Calculated 288 mOsm/kg (285-295); Sodium 140 mmol/L (136-145)
[2022-06-23 06:36] LABS: Partial Thromboplastin Time 30.8 SECONDS (23.9-36.7)
[2022-06-23 06:36] LABS: Potassium 2.8 mmol/L (3.5-5.1)
[2022-06-23] MEDS: potassium chloride ER 20 mEq Tablet 60 MEQ PO ×2 (06:49→16:24)
[2022-06-23 07:44] LABS: Glucose Point of Care 127 mg/dL (70-110)
--- NOTE | 2022-06-23 08:00 | USR_ITS ---
PROCEDURE INFORMATION: Exam: US Abdomen, Limited; Right Upper Quadrant Exam date and time: 06/23/2022 5:04 AM Age: 61 years old Clinical indication: Abdominal pain; Generalized; Additional info: Galbladder and liver, patient ate et 2 pm. Nurse npo at midnight TECHNIQUE: Imaging protocol: Real time ultrasound of the abdomen with image documentation. Limited exam focused on the right upper quadrant. COMPARISON: CT abdomen pelvis w con* [id number] 06/21/2022 11:24 PM FINDINGS: Pleural spaces: Partially imaged right pleural effusion is noted. Liver: The liver measures 14.6 cm in length. There is a mildly heterogenous somewhat ill-defined area of increased echogenicity near the dome of the liver measuring approximately 2.2 cm x 1.0 cm x 2.1 cm. No other focal intrahepatic lesions are seen. Gallbladder: No gallbladder wall thickening. No gallstones. No pericholecystic fluid. Negative sonographic Ramon sign. The CBD measures 5 mm in diameter Biliary ducts: No stones. No dilation. Pancreas: The pancreas is not well seen or evaluated on this exam. Right kidney: The right kidney is within normal limits of variation for the patient's age measuring 10.4 cm x 4.7 cm x 4.9 cm with a cortical thickness of 1.2 cm. No overt soft tissue mass. No hydronephrosis. There is a subtle area of increased attenuation within the cortex of the superior pole which may represent sequelae of remote insult however other etiologies cannot be excluded as this region is incompletely and suboptimally evaluated on this exam. Correlate and follow-up as clinically indicated. US/US abdomen limited [id number] IMPRESSION: 1. No sonographic findings of the cholelithiasis or acute cholecystitis. 2. There is a mildly heterogenous somewhat ill-defined area of increased echogenicity near the dome of the liver measuring approximately 2.2 cm x 1.0 cm x 2.1 cm. No other focal intrahepatic lesions are seen. Finding may represent atypical hemangioma versus vascular calcification however other etiologies including dystrophic calcification from prior infectious and or inflammatory insult, hepatic adenoma, and less likely malignancy cannot be excluded. Correlate and follow-up as clinically indicated. 3. Other chronic/incidental findings as described above.
[2022-06-23] MEDS: aspirin 81 mg EC Tablet PO (10:00)
[2022-06-23] MEDS: pantoprazole DR 40 mg Tablet PO ×2 (10:01→18:05)
--- NOTE | 2022-06-23 10:52 | US_ITS ---
WS: [id number] ULTRASOUND-GUIDED THORACENTESIS CLINICAL INFORMATION: pleural effuision PROCEDURE: Informed consent: The risks, benefits, and alternatives of the procedure were discussed with the fabian ent. Verbal and written consent was obtained. Timeout: A timeout was performed to confirm the correct patient, procedure, and site. Site: RIGHT chest Preparation: A suitable skin site was identified. The patient was prepped and draped in usual sterile fashion. Lidocaine 1% was used for local anesthesia. Catheter: 4 [place] One-Step catheter. Fluid Volume: 1000 ml Color: Clear yellow 50 cc sent to the laboratory for analysis. Complications: No pneumothorax on the portable radiograph US/ thoracentesis [id number] IMPRESSION: Uncomplicated ultrasound-guided RIGHT thoracentesis. Removal of 1000 cc clear y ellow fluid
[2022-06-23 11:20] LABS: Glucose Point of Care 99 mg/dL (70-110)
[2022-06-23 11:45] LABS: Anion Gap 9.6 (5-19); Blood Urea Nitrogen 6 mg/dL (8-23); Calcium 9.6 mg/dL (8.5-10.5); Carbon Dioxide 40 mmol/L (22-29); Chloride 93 mmol/L (98-107); Creatinine Clr Calc Pharmacy 75.3951; Glomerular Filtration Rate 85.1 mL/min (90-130); Glucose 103 mg/dL (65-115); Osmolality Calculated 286 mOsm/kg (285-295); Potassium 3.6 mmol/L (3.5-5.1); Sodium 139 mmol/L (136-145)
--- NOTE | 2022-06-23 11:51 | PC.CHAP ---
Pastoral Care Encounter/Spiritual Assessment Type of Contact [] Declined airplane dispatch clerk visit [] Patient/Family/Request visit [] Outpatient visit [] Follow-up visit [] Physician referral [] Code/Alert [x] Routine visit [] Staff referral [] Actively dying [] Patient sleeping [x]x Family support [] [] Out of room [] Palliative care [] [] Receiving care in room [] Pre-surgical visit [] Trauma [] Long length of stay [] ICU visit [] Other: Relational/Emotional Strength [x] Patient feels connected with others/family/visitors/staff [] Distress [] Loneliness/isolation [] Abandonment Spirituality of Patient [x] Person of Lindy [] Attends Jain of their [place] [x] Believes in Prayer [] Reads Bible or Episcopal materials [] There are Spiritual issues to be addressed Pantograph Setter Interventions [x] Prayer [x] Active listening [x] Non-anxious presence [x] Spiritual/emotional support [] Crisis/trauma care [] Spiritual counseling [] Bereavement support [] Provided bereavement packet [] Provided Bible/devotional materials [] Provided toy/stuffed animal, coloring book to patient or family member [] Provided Communion [] Anointing/[place] [] Salvation [x Completed spiritual assessment [] Other: Impact on Illness or Injury [] Angry [] Fearful [] Anxious [] Often cries [] Exhaustion [] Unable to work [] Unable to attend catholic [] Unable to walk/stand [] Unable to read [] Unable to drive [] Unable to eat/drink [] Unable to sleep [] Unable to be with family [] Patient intubated [] Other: Summary Time spent with patient 10 mmin
--- NOTE | 2022-06-23 14:00 | XR_ITS ---
WS: [id number] CHEST XRAY TECHNIQUE: Portable chest. CLINICAL INFORMATION: S/P thoracentesis COMPARISON: June 21, 2022 FINDINGS: Heart: Cardiomegaly Lungs: Small LEFT pleural effusion appears slightly improved. Status post RIGHT thoracentesis. Small amount of residual pleural fluid with atelectasis RIGHT lower lobe. No pneumothorax. Bones: Osteopenia.. XR/XR chest 1V portable [id number] IMPRESSION: 1. Status post RIGHT thoracentesis. Nearly resolved RIGHT pleural effusion. No pneumothorax. 2. Small LEFT pleural effusion appears stable to slightly improved compared to 06/21/2022 3. No other significant changes.
[2022-06-23 14:57] LABS: Body Fluid Polynuclear #Cells 0.019; Body Fluid WBC 317 /uL; Monocytes # Body Fluid 0.298
[2022-06-23 15:00] LABS: Apprearance, Body Fluid CLEAR; Color, Body Fluid YELLOW; Cyto Order Verification No Order; PATH Referral YES
--- NOTE | 2022-06-23 15:29 | P.PN_ITS ---
Subjective Subjective: She is overall doing slightly better. Edema is improving. Has been feeling bloated. Vitals/I&O/Wt Last Vital Signs Temp 98.5 F 06/23/22 11:38 Pulse 78 06/23/22 11:38 Resp 18 06/23/22 11:38 BP 104/65 06/23/22 11:38 Pulse Ox 93 06/23/22 11:38 O2 Del Method 06/23/22 11:38 O2 Flow Rate 3 06/23/22 07:47 06/23/22 06/23/22 06/23/22 06:59 14:59 22:59 Intake Total 100 / 630 50 / 50 Output Total 1900 / 4100 500 / 500 Balance -1800 / -3470 -450 / -450 Weight last 48 hrs Weight 59.421 kg Physical Exam Const: COMMON NORMALS: patient oriented x3 and alert GENERAL APPEARANCE: cooperative ORIENTATION/CONSCIOUSNESS: Yes awake HENMT: COMMON NORMALS: oropharynx normal Neck/C-Spine: COMMON NORMALS: no JVD Resp: COMMON NORMALS: normal respiratory effort and clear to auscultation bilaterally AUSCULTATION: clear to auscultation bilaterally Cardio: COMMON NORMALS: no JVD, regular rhythm, S1 normal heart sound present, S2 normal heart sound present and No murmurs present (Cardio) RHYTHM: regular rhythm HEART SOUNDS: S1 normal heart sound present and S2 normal heart sound present GI: COMMON NORMALS: Normal to inspection, nondistended, normoactive bowel s ounds present, Soft to palpation and non-tender INSPECTION: Yes abdominal distension PALPATION: Yes Soft to palpation Extremity: COMMON NORMALS: no joint enlargement and no pedal edema OTHER: Thin extremities, sarcopenia Neuro: COMMON NORMALS: patient oriented x3 and moves all extremities SENSORIUM/ORIENTATION: Yes alert Skin: COMMON NORMALS: no rashes or lesions noted GENERAL SKIN EXAM: no rashes or lesions noted OTHER: Skin folds Data 06/23/22 04:53 06/23/22 11:22 Micro: Microbiology 06/22/22 15:40 MRSA Culture - Final Nose 06/22/22 10:09 Blood Culture - Preliminary Blood NEGATIVE TO DATE 06/22/22 10:06 Blood Culture - Preliminary Blood NEGATIVE TO DATE A&P Assessment and plan (1) Congestive heart failure (CHF): Acute systolic and diastolic CHF. Echocardiogram reviewed, EF 30-35%. This is new for her. Additionally concern for RWMA with possible prior LAD area infarct. Noted grade 2 diastolic dysfunction. Trace MVR. With above concerns discussed with cardiology with request for consultation. She has been diuresing well. Continue Lasix 40 mg IV, after this evening's dose consider changing to every 24 hours. Monitor intake and output, reviewed, and negative balance. Requesting weights. (2) Anasarca: Improving. As above. With diuresis monitor potassium, bicarb, renal function. Requested follow-up chemistry. (3) Hypoxia: (4) Diabetes mellitus: (5) Systolic and diastolic CHF, acute: (6) Bilateral pleural effusion: (7) Compressive atelectasis: (8) Hepatic congestion: Likely secondary to CHF as above. Treat as above. Ultrasound results reviewed. Noted liver nodule which she will need outpatient follow-up. (9) Ascites: (10) Thickening of wall of gallbladder: (11) Renal scarring: (12) Pulmonary edema: (13) Avascular necrosis of left femoral head: (14) Weight loss: (15) Goals of care, counseling/discussion: (16) Protein calorie malnutrition: Moderate malnutrition with documented 33 pound weight loss over the last several years, unclear how much she may have lost recently. With noted skin folds, thin extremities with sarcopenia. Continue cardiac diet. Add protein shakes with meals. Follow-up blood chemistry requested. Follow-up with primary provider. (17) Muscular deconditioning: (18) Hypokalemia: Severe hypokalemia. Additional hypokalemia this morning, results of morning potassium reviewed, 2.8. Received 60 mEq potassium. Lasix initially was held. Recheck potassium requested. Reviewed, 3.6. Lasix can be resumed, giving ashlyn tional potassium replacement. Recheck potassium in the morning. Check magnesium. At risk of worsening hypokalemia with continued IV diuresis for acute CHF, and risk of arrhythmia with hypokalemia, low EF. Continue cardiac monitoring. (19) Diabetic gastroparesis: May benefit from follow-up with gastric emptying study. (20) Hypothyroidism: (21) Chronic cough: (22) Cervical lymphadenopathy: (23) NSTEMI (non-ST elevated myocardial infarction): (24) Acute respiratory failure with hypoxia: Plan Bloating, belching: Possible diabetic cyst, although improving. Also noted to have new CHF. Possibly congestive gastropathy. Continue diuresis. Requesting records from EGD. Chronic cough -Does have a history of smoking, reported history of COPD -She does have cervical lymphadenopathy on examination -Consider follow-up with ENT History of hypothyroidism History of gallbladder sludge, CT scan shows gallbladder wall thickening on examination no significant right upper quadrant tenderness No evidence of cholelithiasis or acute cholecystitis on ultrasound. Liver nodule superior pole, 2.2 x 1 x 2.1 cm. Follow-up outpatient. CT shows AVN left femoral head needs to follow-up with orthopedic service as outpatient CT does show renal scarring bilaterally need to follow-up with urology as outpatient Pulm edema as above, with respiratory failure, hypoxia, continue diuresis NSTEMI:-Aspirin, statin. Remains free of chest pain. Appreciate cardiology consultation. Compressive atelectasis bilateral lungs -With her chronic cough could be an underlying pneumonia -Although known to go cytosis, no significant inflammatory marker elevation -Continue Zosyn for now -Follow cultures Type 2 diabetes mellitus, hemoglobin A1c 11 -Lantus 5 units every 24 hours with low-dose sliding scale Weight loss over 100 pounds, monitor will require colonoscopy, mammogram at some point Physical deconditioning, muscle wasting, PT OT protein shakes twice daily Attestations Medical Necessity Statement*: Continue admission for assessment management of acute CHF, new cardiomyopathy EF down to 30-35%. Suspected underlying coronary disease, Diagnoses Congestive heart failure (CHF) I50.9 Anasarca R60.1 Hypoxia R09.02 Diabetes mellitus E11.9 Systolic and diastolic CHF, acute I50.41 Bilateral pleural effusion J90 Compressive atelectasis J98.11 Hepatic congestion K76.1 Ascites R18.8 Thickening of wall of gallbladder K82.8 Renal scarring N28.89 Pulmonary edema J81.1 Avascular necrosis of left femoral head M87.052 Weight loss R63.4 Goals of care, counseling/discussion Z71.89 Protein calorie malnutrition E46 Muscular deconditioning R29.898 Hypokalemia E87.6 Diabetic gastroparesis E11.43; K31.84 Hypothyroidism E03.9 Chronic cough R05.3 Cervical lymphadenopathy R59.0 NSTEMI (non-ST elevated myocardial infarction) I21.4 Acute respiratory failure with hypoxia J96.01
[2022-06-23 16:27] LABS: Albumin Body Fluid 1.3 g/dL; Creatinine Body Fluid 0.63 (0.5-0.9); Triglycerides, Pleural Fluid 16 mg/dL
[2022-06-23 16:28] LABS: LDH Pleural Fluid 59 U/L; Total Protein Pleural Fluid 1.8 g/dL
[2022-06-23] MEDS: acetaminophen 325 mg Tablet 650 MG PO (16:28)
[2022-06-23 16:38] LABS: Glucose Point of Care 189 mg/dL (70-110)
--- NOTE | 2022-06-23 16:57 | PM.CONSULT ---
Providers/Reason For Consult Consulting Physician/Specialty*: Dylan Garcia MD/ Cardiology Reason for Consult*: New onset congestive heart failure Requesting Physician: Dr Silver SUAREZ Attending Physician: Nate Sheppard Primary Care Provider: Ashu Santos MD History of Present Illness History of Present Illness Tamra Hussein is a 61 year old female with past medical history of diabetes who has been noticing shortness of breath and chest discomfort episodes on and off for the last 2 to 3 months. She feels discomfort substernally that radiates to the back. Was having a lot of belching at home as well. She was found to have a EF of 30 to 35% on echocardiogram. Regional wall motion abnormalities were seen in LAD territory. Troponins have not trended up significantly. EKG shows Q waves in anterior and inferior leads. Review of Systems Narrative: CONSTITUTIONAL: No fever chills weight loss or gain or night sweats. [] HEENT: Normocephalic, atraumatic.[] RESPIRATORY: No cough, sputum, hemoptysis or wheezing.[] CARDIOVASCULAR: Shortness of breath GI: no nausea vomiting diarrhea. [] LIBRARIAN HELPER: No numbness, tingling, weakness or loss of function in any part of the body. [] MUSCULOSKELETAL: No knee or joint pain or rashes. [] Medications/Allergies Home Medications Medication Instructions Recorded Confirmed Last Taken Type ascorbic acid (vitamin C) 500 mg 500 mg PO DAILY 06/22/22 06/22/22 Unknown History tablet (Vitamin C) budesonide-formoterol HFA 160 2 puff inhalation BID 06/22/22 06/22/22 Unknown History mcg-4.5 mcg/actuation aerosol inhaler multivitamin 1 tab PO DAILY 06/22/22 06/22/22 Unknown History pantoprazole 40 mg tablet,delayed 40 mg PO QAM 06/22/22 06/22/22 Unknown History release Allergies Allergy/AdvReac Type Severity Reaction Status Date / Time codeine Allergy Unknown Verified 06/22/22 07:57 shahrzad Allergy Unknown Verified 06/22/22 07:57 trazodone Allergy Unknown Verified 06/22/22 07:57 Current Medications Generic Name Dose Route Start Last Admin Trade Name Freq PRN Reason Stop Dose Admin Acetaminophen 650 mg 06/22/22 05:08 06/23/22 16:28 Acetaminophen 325 Mg Tablet PO 650 mg Q6H PRN Administration Mild/Mod Pain Or Temp >/= 101 Aspirin 81 mg 06/22/22 09:00 06/23/22 10:00 Aspirin 81 Mg Ec Tablet PO 81 mg DAILY DAVID Administration Enoxaparin Sodium 40 mg 06/22/22 05:15 06/23/22 05:49 Enoxaparin 40 Mg/0.4 Ml Syringe SUBCUT 40 mg Q24H DAVID Administration Furosemide 40 mg 06/22/22 18:00 06/23/22 14:08 Furosemide 10 Mg/Ml Sdv 4ml IVP Not Given Q12H DAVID Piperacillin Sod/Tazobactam 50 mls @ 12.5 mls/hr 06/22/22 09:30 06/23/22 14:07 Sod 3.375 gm/ Sodium Chloride IV Infused Q8H DAVID Infusion Protocol Insulin Glargine 5 unit 06/23/22 06:00 06/23/22 06:10 Insulin Glargine 100 Units/1 Ml SUBCUT 5 unit QAM DAVID Administration Insulin Human Lispro 0 unit 06/22/22 08:00 06/23/22 13:18 Insulin Lispro 100 Unit/1 Ml SUBCUT Not Given WM&BEDTIME DAVID Protocol Levothyroxine Sodium 25 mcg 06/23/22 06:00 06/23/22 05:48 Levothyroxine 25 Mcg Tablet PO 25 mcg QAM DAVID Administration Pantoprazole Sodium 40 mg 06/22/22 09:00 06/23/22 10:[address] 40 Mg Tablet PO 40 mg BID DAVID Administration PFSH Acute PFSH: Medical History (Updated 06/22/22 @ 12:49 by Demario Butler MD) Diabetes Social History Smoking and tobacco status: never smoked Alcohol intake: never Vitals/I&O/Wt Last Vital Signs Temp 97.9 F 06/23/22 15:44 Pulse 72 06/23/22 15:44 Resp 18 06/23/22 15:44 BP 113/64 06/23/22 15:44 Pulse Ox 97 06/23/22 15:44 O2 Del Method 06/23/22 15:44 O2 Flow Rate 3 06/23/22 07:47 06/23/22 06/23/22 06/23/22 06:59 14:59 22:59 Intake Total 100 / 630 50 / 50 Output Total 1900 / 4100 500 / 500 Balance -1800 / -3470 -450 / -450 Weight last 48 hrs Weight 131 lb Physical Exam Narrative: GENERAL: Patient is alert, awake and oriented x3. [] NECK: No jugular vein distension. [] HEENT: No cyanosis. No icterus. No pallor. [] HEART: Regular S1 and S2. No murmur, rub or gallop. [] LUNGS: Mild crackles bilaterally ABDOMEN: Soft, nontender and nondistended. Positive bowel sounds. No guarding, rebound or tenderness. [] CENTRAL NERVOUS SYSTEM: Grossly nonfocal. [] EXTREMITIES: Lower extremities with 1+ edema bilaterally. Pulses palpable in the lower extremities, both dorsalis pedis and posterior tibial. [] Data 06/23/22 04:53 06/23/22 11:22 Micro: Microbiology 06/22/22 15:40 MRSA Culture - Final Nose 06/22/22 10:09 Blood Culture - Preliminary Blood NEGATIVE TO DATE 06/22/22 10:06 Blood Culture - Preliminary Blood NEGATIVE TO DATE A&P Assessment and plan (1) Acute respiratory failure with hypoxia: (2) Pulmonary edema: (3) Bilateral pleural effusion: (4) Systolic and diastolic CHF, acute: (5) Diabetes mellitus: (6) Congestive heart failure (CHF): Plan Patient has presented with congestive heart failure that is new onset. Regional wall motion abnormalities are seen in LAD territory. We will proceed with coronary angiogram with possible percutaneous coronary intervention. We will also perform right heart cath. Continue IV diuretics. She had thoracentesis performed. Based on cath findings, further recommendations will be made Thank you for involving us with care of this patient. We will continue to follow. Please call with questions. Consult Attestations Medical Necessity Statement: Care expected to cross 2 midnights. Coding Level of Care Code Acute Code for [facility] Diagnoses Acute respiratory failure with hypoxia J96.01 Pulmonary edema J81.1 Bilateral pleural effusion J90 Systolic and diastolic CHF, acute I50.41 Diabetes mellitus E11.9 Congestive heart failure (CHF) I50.9
[2022-06-23] MEDS: FUROsemide 10 mg/mL SDV 4mL 40 MG IVP (18:01)
[2022-06-23] MEDS: insulin lispro 100 unit/1 mL SUBCUT ×2 (18:02→20:58)
[2022-06-23] MEDS: aspirin 325 mg Tablet PO (20:31)
[2022-06-23 20:45] LABS: Glucose Point of Care 329 mg/dL (70-110)
[2022-06-24] VITALS (67 sets, daily range): BP systolic 93–122; BP diastolic 57–76; PULSE 67–82; RESP 0–32; TEMP 36.6–36.8; O2SAT 91–100
[2022-06-24] MEDS: piperacillin-tazobactam 3.375 GM in sodium chloride 0.9% (plus) 50 ML IV ×3 (00:22→17:09)
--- NOTE | 2022-06-24 05:29 | XACV_ITS ---
Exam Room: [facility] Ht: 163 cm Wt: 59 kg BSA: 1.64 m2 Gender: Female : 1960 Any Known Allergies: Other Exam Priority: Routine Procedure(s): Procedure Description: Diagnostic procedure Procedure Description: PCI procedure Procedure Description: Left Heart Catheterization Procedure Description: Right Heart Catheterization Procedure Description: O2 saturation Procedure Description: Coronary IVUS Procedure Description: Drug Eluting Coronary Stent Procedure Description: PTCA Procedure Description: Miscellaneous Procedure Description: ACT Procedure Description: Coronary Angiography Diagnostic Cath Status: Urgent Diagnostic Findings * Left Main has no significant disease. * Circumflex has mild to moderate luminal irregularities. * Right Coronary Artery has mild to moderate luminal irregularities. * Proximal Left Anterior Descending: severe 90% stenosis, GUILLERMO: 3 flow. * Coronary angiography shows right dominance. PCI Status: Urgent PCI Indication: Other Interventional Findings * PROCEDURE DETAIL: We engaged left main artery with XB 3.0 guide catheter. IV heparin was administered to maintain ACT above 250 S. 0.014 run-through guidewire was used to cross the proximal LAD stenosis and was put in distal vessel. We predilated stenosis with 2.5 x 12 mm semicompliant balloon. This was followed by placement of 2.75 x 15 mm resolute Stephenson drug-eluting stent. At this time we performed IVUS to see stent expansion. We postdilated the stent with 2.75 x 6 mm NC balloon. At this time final angiogram was performed that showed excellent stent expansion, GUILLERMO-3 flow and no residual stenosis.. * Proximal Left Anterior Descendin% stenosis treated with a AB TREK 2.50X12 RX BALLOON, MDT R PIERRE 2.75X15 TRINITY, and MDT MAITE EUPHORA RX [id number] BALLOON. 0% residual stenosis, GUILLERMO: 3 flow. Conclusions 1. Severe proximal LAD stenosis s/p successful revascularization with TRINITY x1.. 2. Mildly elevated left sided cardiac pressure. 3. Proximal Left Anterior Descending was treated with a Balloon, Drug Eluting Stent, and Balloon. Recommendations * Dual antiplatelet therapy with aspirin and Plavix. * High intensity statin therapy. * Outpatient cardiology follow up in 2 weeks. Interventional RX Recommendation: PCI w/o planned CABG Diagnostic RX Recommendation: PCI w/o planned CABG Anticoagulation: Heparin Pressures Phase:Rest AO : 110 / 66 ( 83 ) @ 10:29:00 AM 110 / 51 ( 76 ) @ 10:29:00 AM 103 / 71 ( 87 ) @ 10:31:00 AM 105 / 73 ( 89 ) @ 10:31:00 AM 133 / 85 ( 105 ) @ 10:43:00 AM 129 / 83 ( 103 ) @ 10:43:00 AM 125 / 89 ( 106 ) @ 10:45:00 AM 153 / 86 ( 113 ) @ 10:50:00 AM 146 / 85 ( 110 ) @ 10:53:00 AM 143 / 83 ( 108 ) @ 10:54:00 AM 111 / 63 ( 81 ) @ 10:58:00 AM LV : 108 / 0 / 11 @ 10:29:00 AM 107 / 0 / 11 @ 10:29:00 AM RV : 42 / 0 / 7 @ 10:20:00 AM PA : 42 / 12 ( 28 ) @ 10:19:00 AM RA : a wave = 10 v wave = 11 mean = 7 @ 10:20:00 AM PCW : a wave = 20 v wave = 18 mean = 17 @ 10:18:00 AM O2 Content Phase:Rest PA : O2 Content O2: 62.4 @ 10:53:00 AM Saturations Phase:Rest AO : 88 @ 10:31:00 AM PA : 62 @ 10:53:00 AM Cardiac Output Phase:Rest Dena : 3 @ ::23 AM Dena Cardiac Index: 2 @ :23 AM Flow Phase:Rest Qp : 3 @ :23 AM Qs : 3 @ ::23 AM Valves Phase:DefaultPhase AV : 0.0 @ ::23 AM 0.0 @ 11::23 AM AV Mean Gradient: 0.0 @ 11::23 AM 0.0 @ 11::23 AM AV Flow: 197 @ ::23 AM Clinical Evaluation EBL: 5mL-10mL Procedural Details Procedure Consent Obtained. Pre-Procedure Time Out. Identified patient by full name and date of as verbalized by the patient/guarantor. Does the consent match the physician's order: Yes. Accurate & Complete Informed Consent: Yes. Inpatient/Outpatient History & Physical on Chart: Yes. If H&P is completed, is and addenduem needed: No; If yes, is the addendum complete: N/A. Visualize and Verify Site with Patient/Guarantor: N/A. Relevant Radiology Images available: Yes. Pre-op teaching completed and patient verbalized understanding. The risks, benefits, and alternatives of sedation and/or procedure were discussed by physician. The patient agrees to continue. Procedure started. [facility] Clinical Fraility Score: 3: Managing Well. Cutter Machine Tender Indications: Other. Chest Pain Symptom Assessment: Asymptomatic. Correct patient, site and procedure confirmed by cath team. PERRLA. Strong, equal hand recoil spring winder bilaterally. Lungs clear x 5 lobes. IV Fluids: 0.9% NaCl at KVO. 0 mL infused prior to boat laborer. bilateral groins was prepped with chloroprep then draped in the usual sterile fashion. right radial was prepped with chloroprep then draped in the usual sterile fashion. IV Site on Arrival: 18 gauge in the left anticubital. A 20 gauge IV was started in the right anticubital using aseptic technique. Baseline sample Acquired. HR: 79 BPM. Physician arrived. Jose Garza RNnurse educator with Javan Alfaro RN. Physician scrubbed in. Immediate Pre-Procedure Time Out. Correct Patient: Yes; Correct Procedure: Yes; Correct Site: Yes; Correct Patient Position: Yes; Correct Supplies: Yes; Dried Flammable Prep: Yes; Blood Products Available: N/A;. Lidocaine 1% infiltrated to the right brachial. Sheath wire inserted through the right brachial IV site. IV catheter out OTW. [place] MON catheter inserted. Oximetry samples were obtained. Normal venous range: 60-85%. Normal arterial range: 95-100%. Pressure measurements obtained. [place] out. Arterial access obtained. Wire unable to advance. Wire and needle out. Arterial access obtained. Oxygen started at 2liters/min via nasal canula. Respiratory called to slat pickler O2 sats. A 5 british TIG catheter in over wire. EDP Sample taken: LV 107/0,11; HR: 77 BPM; SpO2: 92%. Pullback taken: LV 108/0,11; AO 110/66(83); Mean: 0mmHg, Peak to Peak: 0mmHg, SEP: 17sec/min; HR: 77 BPM; SpO2: 92%. Multiple views taken of left coronary artery. Catheter redirected to the RCA. Multiple views taken of right coronary artery. Catheter removed over the exchange wire. A 5 british JL3.5 catheter in over wire. Multiple views taken of left coronary artery. Catheter removed over the exchange wire. 6 british XB 3 guide catheter was inserted over the wire. Runthrough guidewire was advanced through the guide catheter to lesion in the prox LAD. Inflation number : 1 A AB TREK 2.50X12 RX BALLOON was prepped and advanced across the Prox LAD , then inflated to 8 MARLIN for 0:20 seconds. Inflation number: 2 The AB TREK 2.50X12 RX BALLOON was reinflated across the Prox LAD, to 10 MARLIN for 0:15 seconds. Balloon out. Inflation Number : 3 Jaycob Olivo PIERRE 2.75X15 TRINITY -Lot Number# _[id number] EXP: 10/18/2023 was prepped and advanced across the Prox LAD. The stent was deployed at 12 MARLIN for 0:17 seconds. Stent balloon out over wire. Results checked. ACT drawn. Results 268 seconds. Therapeutic limits - pre-heparin administration 90-150 seconds and monitoring heparin during a vascular procedure >250 seconds. IVUS catheter inserted OTW to the prox LAD. IVUS measurements obtained. IVUS catheter out OTW. Inflation number : 4 A MDT NC EUPHORA RX [id number] BALLOON was prepped and advanced across the Prox LAD , then inflated to 14 MARLIN for 0:20 seconds. Inflation number: 5 The MDT NC EUPHORA RX [id number] BALLOON was reinflated across the Prox LAD, to 12 MARLIN for 0:14 seconds. Balloon out. Results checked. Wire out. Results checked. Guide catheter out. A Manual Compression was successful obtaining hemostatsis at the Right Brachial Vein insertion site. A TR Band was successful obtaining hemostatsis at the Right Radial artery insertion site. Post Procedure: Pulses reassessed and unchanged. PERRLA. Strong, equal hand recoil spring winder bilaterally. No VTE prophylaxis required. Medication's Wasted: Nitro = 49.8 mg. Medication's Wasted: Heparin = 4000 units. Total IV fluids: 128 mL. Post-op diagnosis: CAD in the LAD. Complications: None. Estimated blood loss: 5mL-10mL. Responsiveness - Normal response to verbal stimuli; alert and oriented, PERRLA. Airway - Unaffected, no intervention required; spontaneous ventilation. Circulation: W/N/L, pulses unchanged. Nausea/Vomiting: No. Procedure completed. Vital chart was stopped. Patient transferred by wheelchair to 1st floor. Access Site Site: Right Brachial Vein Sheath Size: 6 Fr Hemostasis Method: Manual Compression Hemostasis Success: Successful Site: Right Radial artery Sheath Size: 6 Fr Hemostasis Method: TR Band Hemostasis Success: Successful Procedure Medications Start: 10:26 AM Stop: 10:26 AM Medication: Nitrogylcerin Amount: 200 mcg Route: I.A. Start: 10:28 AM Stop: 10:28 AM Medication: Heparin Amount: 5000 units Route: I.V. Start: 10:28 AM Stop: 10: AM Medication: Versed Amount: 1 mg Route: I.V. Start: 10:35 AM Stop: 10:35 AM Medication: Versed Amount: 1 mg Route: I.V. Start: 10:41 AM Stop: 10:41 AM Medication: Heparin Amount: 1000 units Route: I.V. Start: 10:51 AM Stop: 10:51 AM Medication: Fentanyl Amount: 50 mcg Route: I.V. Start: 10:54 AM Stop: 10:54 AM Medication: Heparin Amount: 1000 units Route: I.V. Start: 11:00 AM Stop: 11:00 AM Medication: Fentanyl Amount: 50 mcg Route: I.V. Start: 11:08 AM Stop: 11:08 AM Medication: Plavix Amount: 600 mg Route: P.O. I, the attending physician, have reviewed and verified all procedure medications. Yes, all medications given per verbal order History/Risk Factors Hypertension: No Dyslipidemia: No Peripheral Arterial Disease (PAD): No Myocardial Infarction ([place]): No Obesity: No Renal Disease: No Tobacco Use: Never Prior Interventions PCI: No CABG: No Valve Surgery: No Report Signatures Finalized by Dylan Garcia MD on 07/05/2022 01:49 PM
[2022-06-24 05:52] LABS: Alanine Aminotransferase 12 U/L (0-33); Albumin Level 3.2 g/dL (3.5-5.2); Alkaline Phosphatase 105 U/L (35-105); Anion Gap 10.6 (5-19); Aspartate Amino Transferase 15 U/L (0-32); Blood Urea Nitrogen 7 mg/dL (8-23); Calcium 9.1 mg/dL (8.5-10.5); Carbon Dioxide 39 mmol/L (22-29); Chloride 94 mmol/L (98-107); Globulin 2.6 g/dL (1.3-4.6); Glomerular Filtration Rate 63.7 mL/min (90-130); Glucose 134 mg/dL (65-115); Osmolality Calculated 290 mOsm/kg (285-295); Potassium 3.6 mmol/L (3.5-5.1); Sodium 140 mmol/L (136-145); Total Bilirubin 0.8 mg/dL (0.15-1.2); Total Protein 5.8 g/dL (6.6-8.7)
--- NOTE | 2022-06-24 05:59 | PC.NURSE ---
Patient's blood pressure 96/57. Patient scheduled for cardiac cath at [address] Garcia to give Lasix and Lovenox at this time.
[2022-06-24] MEDS: FUROsemide 10 mg/mL SDV 4mL 40 MG IVP (06:00)
[2022-06-24] MEDS: enoxaparin 40 mg/0.4 mL Syringe SUBCUT (06:00)
[2022-06-24] MEDS: levothyroxine 25 mcg Tablet PO (06:00)
[2022-06-24 06:33] LABS: Glucose Point of Care 151 mg/dL (70-110)
[2022-06-24] MEDS: aspirin 81 mg EC Tablet PO (09:00)
[2022-06-24] MEDS: pantoprazole DR 40 mg Tablet PO ×2 (09:00→17:08)
--- NOTE | 2022-06-24 10:03 | W.PM.OPSUD ---
Surgery/Procedure H&P Update DATE OF PROCEDURE: June 24, 2022 DATE H&P PERFORMED: 06/23/22 H&P UPDATE INFORMATION: I have reviewed H&P completed within last 30 days, I have examined patient prior to procedure and No changes to prior documentation PLANNED PROCEDURE: Operation Date: 06/24/22 10:00 Proposed Procedures p Cardiac Catheterization LEFT AND RIGHT(Bilateral) - Dylan Garcia M.D Possible percutaneous coronary intervention PATIENT REASSESSED PRIOR TO SEDATION, WITH NO CHANGE NOTED: Yes PHYSICAL EXAM: alert, oriented x 3, clear to auscultation bilaterally and regular rate & rhythm AIRWAY EVAL/ANESTHESIA PLAN: normal airway, ASA III, Local Anesthesia, Risks, benefits & alternatives of sedation and/or procedure discussed and Patient agrees to continue as planned ADDITIONAL INFORMATION: Moderate sedation
[2022-06-24 10:33] LABS: Blood Gas Operator Identificat AO; Blood Gas Sample Type Arterial
[2022-06-24 10:35] LABS: Alveolar-Arterial Oxygen Gradi 4.2 mmHg (5-10); Arterial Blood Gas Hematocrit 50.2 % (37-47); Carboxyhemoglobin 1.3 %THgb (0.4-20.1); HGB O2 Sat 86.8 % (95-100); Methemoglobin 0.1 % (0.4-1.5); Total Hemoglobin 16.4 g/dL (12-16)
[2022-06-24 10:38] LABS: Alveolar-Arterial Oxygen Gradi 5.8 mmHg (5-10); Arterial Blood Gas Hematocrit 49.4 % (37-47); Blood Gas Sample Type Arterial; Carboxyhemoglobin 1.3 %THgb (0.4-20.1); HGB O2 Sat 61.5 % (95-100); Methemoglobin 0.2 % (0.4-1.5); Total Hemoglobin 16.1 g/dL (12-16)
--- NOTE | 2022-06-24 11:07 | P.PN_ITS ---
Subjective Subjective: Patient underwent cardiac cath today that showed critical proximal LAD stenosis. S/p successful revascularization with DESX 1. No chest pain. Breathing is better, Vitals/I&O/Wt Last Vital Signs Temp 98.3 F 06/24/22 07:23 Pulse 72 06/24/22 07:23 Resp 15 06/24/22 07:23 BP 98/58 06/24/22 07:23 Pulse Ox 96 06/24/22 07:23 O2 Del Method 06/24/22 07:23 O2 Flow Rate 3 06/24/22 07:46 06/23/22 06/24/22 06/24/22 22:59 06:59 14:59 Intake Total 290 / 340 50 / 390 Output Total 2200 / 2700 800 / 3500 1100 / 1100 Balance -1910 / -2360 -750 / -3110 -1100 / -1100 Weight last 48 hrs Weight 124 lb 11.2 oz Physical Exam Narrative: GENERAL: Patient is alert, awake and oriented x3. [] NECK: No jugular vein distension. [] HEENT: No cyanosis. No icterus. No pallor. [] HEART: Regular S1 and S2. No murmur, rub or gallop. [] LUNGS: Mild crackles bilaterally CENTRAL NERVOUS SYSTEM: Grossly nonfocal. [] EXTREMITIES: Lower extremities with 1+ edema bilaterally. Pulses palpable in the lower extremities, both dorsalis pedis and posterior tibial. [] Data 06/23/22 04:53 06/24/22 04:30 Micro: Microbiology 06/23/22 14:59 Gram Stain - Final Sputum - Expectorated Sputum 06/23/22 14:00 Gram Stain - Final Pleural Fluid 06/22/22 15:40 MRSA Culture - Final Nose 06/22/22 10:09 Blood Culture - Preliminary Blood NEGATIVE TO DATE 06/22/22 10:06 Blood Culture - Preliminary Blood NEGATIVE TO DATE A&P Assessment and plan (1) Acute respiratory failure with hypoxia: (2) Pulmonary edema: (3) Bilateral pleural effusion: (4) Systolic and diastolic CHF, acute: (5) Diabetes mellitus: (6) Congestive heart failure (CHF): Plan Patient underwent successful revascularization of the proximal LAD today with TRINITY x 1 Continue aspirin and Plavix for atleast 1 year Hold diuretics today. Tomorrow can start PO lasix Thank you for involving us with care of this patient. We will continue to follow. Please call with questions. Attestations Medical Necessity Statement*: Care expected to cross 2 midnights. Coding Level of Care Code Acute Code for [facility] Diagnoses Acute respiratory failure with hypoxia J96.01 Pulmonary edema J81.1 Bilateral pleural effusion J90 Systolic and diastolic CHF, acute I50.41 Diabetes mellitus E11.9 Congestive heart failure (CHF) I50.9
[2022-06-24 11:29] LABS: Blood Gas Sample Site AO
[2022-06-24] MEDS: ondansetron 2 mg/ML SDV 2 mL 4 MG IVP (12:20)
--- NOTE | 2022-06-24 16:30 | PC.NURSE ---
Air removed from TR band. No hematoma present. Nurse will continue to monitor patient.
[2022-06-24 17:05] LABS: Glucose Point of Care 309 mg/dL (70-110)
[2022-06-24 17:05] LABS: Glucose Point of Care 162 mg/dL (70-110)
[2022-06-24] MEDS: insulin lispro 100 unit/1 mL SUBCUT (17:08)
--- NOTE | 2022-06-24 20:19 | P.PN_ITS ---
Subjective Subjective: Today states she is feeling overall somewhat rough with many things going on. Otherwise doing okay after angiogram. Denies pain or discomfort. Discussed with her preliminary findings with LAD stenosis and stenting. Vitals/I&O/Wt Last Vital Signs Temp 98 F 06/24/22 19:09 Pulse 74 06/24/22 19:09 Resp 26 H 06/24/22 19:09 BP 97/60 06/24/22 19:09 Pulse Ox 95 06/24/22 19:09 O2 Del Method 06/24/22 16:51 O2 Flow Rate 3 06/24/22 07:46 06/24/22 06/24/22 06/24/22 06:59 14:59 22:59 Intake Total 50 / 390 290 / 290 360 / 650 Output Total 800 / 3500 1100 / 1100 1200 / 2300 Balance -750 / -3110 -810 / -810 -840 / -1650 Weight last 48 hrs Weight 56.563 kg Physical Exam Const: COMMON NORMALS: patient oriented x3 and alert GENERAL APPEARANCE: cooperative ORIENTATION/CONSCIOUSNESS: Yes awake HENMT: COMMON NORMALS: oropharynx normal Neck/C-Spine: COMMON NORMALS: no JVD Resp: COMMON NORMALS: normal respiratory effort and clear to auscultation bi laterally AUSCULTATION: clear to auscultation bilaterally Cardio: COMMON NORMALS: no JVD, regular rhythm, S1 normal heart sound present, S2 normal heart sound present and No murmurs present (Cardio) RHYTHM: regular rhythm HEART SOUNDS: S1 normal heart sound present and S2 normal heart sound present GI: COMMON NORMALS: Normal to inspection, nondistended, normoactive bowel sounds present, Soft to palpation and non-tender INSPECTION: Yes abdominal distension PALPATION: Yes Soft to palpation Extremity: COMMON NORMALS: no joint enlargement and no pedal edema OTHER: Thin extremities, sarcopenia Neuro: COMMON NORMALS: patient oriented x3 and moves all extremities SENSORIUM/ORIENTATION: Yes alert Skin: COMMON NORMALS: no rashes or lesions noted GENERAL SKIN EXAM: no rashes or lesions noted OTHER: Skin folds Data 06/23/22 04:53 06/24/22 04:30 Micro: Microbiology 06/23/22 14:00 Mycobacterial Smear - Preliminary Body Fluids - Pleura 06/23/22 14:59 Gram Stain - Final Sputum - Expectorated Sputum Sputum Culture - Preliminary 06/23/22 14:00 Gram Stain - Final Pleural Fluid Body Fluid Culture - Preliminary A&P Assessment and plan (1) Congestive heart failure (CHF): Possible ischemic cardiomyopathy. Status post coronary angiography with finding of significant stenosis of LAD, status post stenting. Discussed with cardiology. Currently Lasix held, receiving gentle IV hydration as per cardiology. Follow- up volume status, renal function in the morning. Studies requested. At the moment not a candidate for PAYTON inhibitor or Entresto with soft blood pressure on review of vitals, 97/60. Acute systolic and diastolic CHF. Echocardiogram reviewed, EF 30-35%. This is new for her. Additionally concern for RWMA with possible prior LAD area infarct. Noted grade 2 diastolic dysfunction. Trace MVR. She has been diuresing well. Continue Lasix 40 mg IV, after this evening's dose consider changing to every 24 hours. Monitor intake and output, reviewed, and negative balance. Requesting weights. (2) CAD (coronary artery disease): Status post stenting LAD. Discussed with her importance of continuing antiplatelet medications. Continue aspirin, Plavix. (3) Anasarca: Improving. As above. Diuretic at the moment on hold. Discussed with her we will need to continue diuretic after discharge. Requested follow-up chemistry. (4) Hypoxia: (5) Diabetes mellitus: (6) Systolic and diastolic CHF, acute: (7) Bilateral pleural effusion: (8) Compressive atelectasis: (9) Hepatic congestion: Likely secondary to CHF as above. Treat as above. Ultrasound results reviewed. Noted liver nodule which she will need outpatient follow-up. (10) Ascites: (11) Thickening of wall of gallbladder: (12) Renal scarring: (13) Pulmonary edema: (14) Avascular necrosis of left femoral head: (15) Weight loss: (16) Goals of care, counseling/discussion: (17) Protein calorie malnutrition: Moderate malnutrition with documented 33 pound weight loss over the last several years, unclear how much she may have lost recently. With noted skin folds, thin extremities with sarcopenia. Continue cardiac diet. Add protein shakes with meals. Follow-up with primary provider. (18) Muscular deconditioning: (19) Hypokalemia: Improved. Reassessment chemistry requested. (20) Diabetic gastroparesis: May benefit from follow-up with gastric emptying study. (21) Hypothyroidism: (22) Chronic cough: (23) Cervical lymphadenopathy: (24) NSTEMI (non-ST elevated myocardial infarction): (25) Acute respiratory failure with hypoxia: Plan Bloating, belching: With recurrence currently. Discussed with her consideration of Reglan, consideration of adverse effects as well. She is concerned of extraparametal effects. She would like to try erythromycin for possible gastroparesis first. Follow-up gastric emptying study after discharge. QTc 428. Possible diabetic cyst, although improving. Also noted to have new CHF. Possibly congestive gastropathy. Continue diuresis. Requested records from EGD. Chronic cough -Does have a history of smoking, reported history of COPD -She does have cervical lymphadenopathy on examination -Consider follow-up with ENT History of hypothyroidism History of gallbladder sludge, CT scan shows gallbladder wall thickening on examination no significant right upper quadrant tenderness No evidence of cholelithiasis or acute cholecystitis on ultrasound. Liver nodule superior pole, 2.2 x 1 x 2.1 cm. Follow-up outpatient. CT shows AVN left femoral head needs to follow-up with orthopedic service as outpatient CT does show renal scarring bilaterally need to follow-up with urology as outpatient Pulm edema as above, with respiratory failure, hypoxia, continue diuresis NSTEMI:-Aspirin, statin. Remains free of chest pain. Appreciate cardiology consultation. Compressive atelectasis bilateral lungs -With her chronic cough could be an underlying pneumonia -Although known to go cytosis, no significant inflammatory marker elevation -Continue Zosyn for now -Follow cultures Type 2 diabetes mellitus, hemoglobin A1c 11 -Lantus 5 units every 24 hours with low-dose sliding scale Weight loss over 100 pounds, monitor will require colonoscopy, mammogram at some point Physical deconditioning, muscle wasting, PT OT protein shakes twice daily Attestations Medical Necessity Statement*: Continue admission for assessment management of CAD with possible ischemic cardiomyopathy, acute CHF Diagnoses Congestive heart failure (CHF) I50.9 CAD (coronary artery disease) I25.10 Anasarca R60.1 Hypoxia R09.02 Diabetes mellitus E11.9 Systolic and diastolic CHF, acute I50.41 Bilateral pleural effusion J90 Compressive atelectasis J98.11 Hepatic congestion K76.1 Ascites R18.8 Thickening of wall of gallbladder K82.8 Renal scarring N28.89 Pulmonary edema J81.1 Avascular necrosis of left femoral head M87.052 Weight loss R63.4 Goals of care, counseling/discussion Z71.89 Protein calorie malnutrition E46 Muscular deconditioning R29.898 Hypokalemia E87.6 Diabetic gastroparesis E11.43; K31.84 Hypothyroidism E03.9 Chronic cough R05.3 Cervical lymphadenopathy R59.0 NSTEMI (non-ST elevated myocardial infarction) I21.4 Acute respiratory failure with hypoxia J96.01
[2022-06-24 20:35] LABS: Glucose Point of Care 113 mg/dL (70-110)
[2022-06-25] VITALS (7 sets, daily range): BP systolic 100–118; BP diastolic 56–65; PULSE 71–78; RESP 16–22; TEMP 36.6–36.8; O2SAT 90–98
[2022-06-25] MEDS: piperacillin-tazobactam 3.375 GM in sodium chloride 0.9% (plus) 50 ML IV ×2 (01:28→09:13)
[2022-06-25 03:59] LABS: Alanine Aminotransferase 8 U/L (0-33); Albumin Level 3.1 g/dL (3.5-5.2); Alkaline Phosphatase 97 U/L (35-105); Anion Gap 10.5 (5-19); Aspartate Amino Transferase 13 U/L (0-32); Blood Urea Nitrogen 12 mg/dL (8-23); Calcium 9.1 mg/dL (8.5-10.5); Carbon Dioxide 37 mmol/L (22-29); Chloride 94 mmol/L (98-107); Globulin 2.5 g/dL (1.3-4.6); Glomerular Filtration Rate 72.9 mL/min (90-130); Glucose 169 mg/dL (65-115); Osmolality Calculated 290 mOsm/kg (285-295); Potassium 3.5 mmol/L (3.5-5.1); Sodium 138 mmol/L (136-145); Total Bilirubin 0.7 mg/dL (0.15-1.2); Total Protein 5.6 g/dL (6.6-8.7)
[2022-06-25] MEDS: acetaminophen 325 mg Tablet 650 MG PO (05:42)
[2022-06-25] MEDS: enoxaparin 40 mg/0.4 mL Syringe SUBCUT (05:42)
[2022-06-25] MEDS: levothyroxine 25 mcg Tablet PO (05:42)
[2022-06-25 06:20] LABS: Glucose Point of Care 196 mg/dL (70-110)
[2022-06-25] MEDS: insulin glargine 100 units/1 mL 5 UNIT SUBCUT (06:36)
[2022-06-25] MEDS: insulin lispro 100 unit/1 mL SUBCUT ×2 (08:08→12:09)
[2022-06-25] MEDS: clopidogrel 75 mg Tablet PO (08:33)
[2022-06-25] MEDS: pantoprazole DR 40 mg Tablet PO (08:33)
[2022-06-25] MEDS: aspirin 81 mg EC Tablet PO (08:33)
--- NOTE | 2022-06-25 09:45 | PM.PN ---
Subjective Subjective: Patient is feeling better. Had PCI of prox LAD. Vitals/I&O/Wt Last Vital Signs Temp 98.2 F 06/25/22 07:24 Pulse 72 06/25/22 07:24 Resp 16 06/25/22 07:24 BP 112/63 06/25/22 07:24 Pulse Ox 97 06/25/22 07:24 O2 Del Method 06/25/22 07:24 O2 Flow Rate 3 06/25/22 07:22 06/24/22 06/25/22 06/25/22 22:59 06:59 14:59 Intake Total 660 / 950 280 / 1230 240 / 240 Output Total 1200 / 2300 650 / 2950 Balance -540 / -1350 -370 / -1720 240 / 240 Weight last 48 hrs Weight 124 lb Weight 124 lb 11.2 oz Physical Exam Narrative: GENERAL: Patient is alert, awake and oriented x3. [] NECK: No jugular vein distension. [] HEENT: No cyanosis. No icterus. No pallor. [] HEART: Regular S1 and S2. No murmur, rub or gallop. [] LUNGS: Mild crackles bilaterally CENTRAL NERVOUS SYSTEM: Grossly nonfocal. [] EXTREMITIES: Lower extremities with 1+ edema bilaterally. Pulses palpable in the lower extremities, both dorsalis pedis and posterior tibial. [] Data 06/23/22 04:53 06/25/22 03:22 Micro: Microbiology 06/23/22 14:00 Mycobacterial Smear - Preliminary Body Fluids - Pleura 06/23/22 14:59 Gram Stain - Final Sputum - Expectorated Sputum Sputum Culture - Preliminary 06/23/22 14:00 Gram Stain - Final Pleural Fluid Body Fluid Culture - Preliminary A&P Assessment and plan (1) Acute respiratory failure with hypoxia: (2) Pulmonary edema: (3) Bilateral pleural effusion: (4) Systolic and diastolic CHF, acute: (5) Diabetes mellitus: (6) Congestive heart failure (CHF): Plan Patient underwent successful revascularization of the proximal LAD today with TRINITY x 1 Continue aspirin and Plavix for atleast 1 year Restart PO lasix Thank you for involving us with care of this patient. Patient is stable to be discharged from cardiology standpoint. Please call with questions. Attestations Medical Necessity Statement*: Care expected to cross 2 midnights. Coding Level of Care Code Acute Code for Chg Fwd Diagnoses Acute respiratory failure with hypoxia J96.01 Pulmonary edema J81.1 Bilateral pleural effusion J90 Systolic and diastolic CHF, acute I50.41 Diabetes mellitus E11.9 Congestive heart failure (CHF) I50.9
[2022-06-25 12:26] LABS: Glucose Point of Care 242 mg/dL (70-110)
--- NOTE | 2022-06-25 13:59 | P.DS_ITS ---
Discharge Providers Date of Admission: 06/22/22 01: Date of Discharge: June 25, 2022 Attending Provider at Admission: Gabi Grant MD Attending Provider at Discharge: Nate Sheppard Primary Care Provider: Ashu Santos MD Diagnoses at Discharge Discharge Diagnosis (1) Acute respiratory failure with hypoxia: Status: Acute (2) Pulmonary edema: Status: Acute (3) Bilateral pleural effusion: Status: Acute (4) Systolic and diastolic CHF, acute: Status: Acute (5) Diabetes mellitus: Status: Acute (6) Congestive heart failure (CHF): Status: Acute Reason for Visit Reason for Visit: swelling legs, weakness Hospital Course Hospital Course Pleasant 61-year-old lady with history of diabetes, biliary sludge, was admitted for assessment management due to anasarca found on presentation after initially coming in with complaints of persistent abdominal discomfort for 2-3 months, multiple episodes of belching, had recently undergone an EGD. Over the past 2 to 3 months her edema is gradually been getting worse. On presentation newly hypoxic, requiring 2 L of oxygen, slightly tachypneic. CT abdomen pelvis without acute finding, positive for moderate, right greater than left pleural effusions with adjacent consolidation at bases suspicious for pneumonia. Small volume ascites with mild diffuse anasarca. Gallbladder wall thickening, nonspecific, possibly secondary. Heterogenous liver density likely related to passive hepatic venous congestion. She was initially treated symptomatically for anasarca with IV diuretics, monitoring of chemistries, renal function. Had no abdominal pain, Ramon negative. Underwent abdominal ultrasound which showed no signs of cholecystitis or cholelithiasis. Was incidentally found to have 2.2 x 1 x 2.1 cm mildly heterogenous somewhat ill-defined area of increased echogenicity near the dome of the liver for which she is asked to follow-up with primary provider. Considerations include hemangioma versus vascular calcification, however, other etiologies including dystrophic calcification from prior infections and/or inflammatory insult, hepatic adenoma, less likely malignancy cannot be excluded. Initially was treated empirically with Zosyn in case of possible infectious etiology/pneumonia with pleural effusions and lower lung findings. Underwent thoracentesis with pleural fluid suggestive of transudative etiology, with negative Gram stain, pending cultures so far negative, cytology negative for malignancy. She has remained afebrile, without symptoms of pneumonia, without leukocytosis, with unremarkable procalcitonin. CT angiogram chest which was also performed was negative for pulmonary embolus, pulm edema with moderate bilateral pleural effusions, bilateral compressive atelectasis. She additionally underwent assessment by TTE with finding of new decrease in ejection fraction under 30-35%, grade 2 diastolic function, regional wall motion abnormalities, trace MVR. Study suggestive of coronary disease and previous CT in distribution of LAD. Referral to study for details. Was seen by cardiology, underwent further assessment with coronary angiography, with finding of significant stenosis of proximal LAD which was treated with TRINITY x1. We will need to continue aspirin and Plavix for at least 1 year. She is otherwise feeling much better. She has diuresed well, and has been in negative balance. Anasarca has resolved. She was instructed on fluid and salt restriction. He is given prescription for oral Lasix and potassium supplementation which she may be able to transition to as needed basis. Please reassess volume status and renal function. Her blood pressure was soft in the hospital, and so she is not initiated on PAYTON inhibitor/ARB/Entresto. Please reassess blood pressures and initiate if safe. She is asked to follow-up with cardiology. Follow-up chest x-ray for resolution of pleural effusion. Her oxygenation has gradually improved, she does not qualify for oxygen on home O2 evaluation. Additional comorbidities noted during this hospitalization include: Initial improvement in belching, bloating, indigestion, initially thought possibly related to congestive changes due to decompensated CHF, however, symptoms still persist. On assessment during hospitalization symptoms found to be possibly related to gastroparesis, she had a trial of Reglan with some improvement. Did express concern regarding extraparametal potential side effects, erythromycin initially given as prescription, but she could not afford it, Reglan prescription given. She is referred for gastric imaging study. In case this is gastroparesis may benefit from further work-up, consideration of other causes, possibly small intestinal bacterial overgrowth or other, possible referral to gastroenterology. A1c is noted to be 11.2. She was started on metformin, empagliflozin for both diabetes and CHF and CAD. He is directed to maintain CC diet. Please follow-up diabetes. Noted she has had quite significant weight loss and with skin folds, decreased muscle mass, concern was for possible malnutrition, however, will need follow-up for further assessment of other possible causes. May be also due to uncontrolled diabetes and she is currently not on any medications. During hospitalization was noted to have cervical lymphadenopathy, please follow-up for resolution or referral to ENT for additional assessment. Follow up regarding avascular necrosis of left femoral head incidentally seen on CT. Follow up for renal scarring bilaterally incidentally seen on CT to consider further follow up with urology and/or nephrology. Follow up thyroid function in 3-4 weeks from now for subclinical hypothyroidism. TSH mildly elevated 4.23 with normal free T4. Physical Exam Const: COMMON NORMALS: patient oriented x3 and alert GENERAL APPEARANCE: cooperative ORIENTATION/CONSCIOUSNESS: Yes awake HENMT: COMMON NORMALS: oropharynx normal Neck/C-Spine: COMMON NORMALS: no JVD Resp: COMMON NORMALS: normal respiratory effort and clear to auscultation bilaterally AUSCULTATION: clear to auscultation bilaterally Cardio: COMMON NORMALS: no JVD, regular rhythm, S1 normal heart sound present, S2 normal heart sound present and No murmurs present (Cardio) RHYTHM: regular rhythm HEART SOUNDS: S1 normal heart sound present and S2 normal heart sound present GI: COMMON NORMALS: Normal to inspection, nondistended, normoactive bowel sounds present, Soft to palpation and non-tender INSPECTION: Yes abdominal distension PALPATION: Yes Soft to palpation Extremity: COMMON NORMALS: no joint enlargement and no pedal edema OTHER: Thin extremities, sarcopenia Neuro: COMMON NORMALS: patient oriented x3 and moves all extremities SENSORIUM/ORIENTATION: Yes alert Skin: COMMON NORMALS: no rashes or lesions noted GENERAL SKIN EXAM: no rashes or lesions noted OTHER: Skin folds Discharge Data Studies Completed and Pending Completed Studies During Hospitalization Category Date Time Status CT abdomen pelvis w con* [id number] Stat Cat Scan 06/21/22 22:[address] angio chest PE protcl [id number] Stat Cat Scan 06/22/22 10:12 Completed XR chest 1V portable [id number] Stat Exams 06/21/22 22:27 Completed XR chest 1V portable [id number] Stat Exams 06/23/22 14:00 [place] [id number] Routine Ultrasound 06/22/22 06:01 Completed CV. 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 Moderate nwoxk-lkhlbhz-meio-left pleural effusions with adjacent consolidation in the bilateral lung bases suspicious for pneumonia. Correlate with clinical findings. 2. Small volume ascites with mild diffuse anasarca. 3. Gallbladder wall thickening which is nonspecific and may be secondary. Correlate clinically. 4. Heterogeneous liver density likely related to passive hepatic venous congestion. Venous Duplex 06/22/22 06:01 IMPRESSION: No evidence of deep vein thrombosis. Chest CTA 06/22/22 10:12 IMPRESSION: 1. No pulmonary embolus. 2. Pulmonary edema with moderate to large bilateral pleural effusions. 3. Bilateral compressive atelectasis. Abdomen Ultrasound 06/23/22 08:00 IMPRESSION: 1. No sonographic findings of the cholelithiasis or acute cholecystitis. 2. There is a mildly heterogenous somewhat ill-defined area of increased echogenicity near the dome of the liver measuring approximately 2.2 cm x 1.0 cm x 2.1 cm. No other focal intrahepatic lesions are seen. Finding may represent atypical hemangioma versus vascular calcification however other etiologies including dystrophic calcification from prior infectious and or inflammatory insult, hepatic adenoma, and less likely malignancy cannot be excluded. Correlate and follow-up as clinically indicated. 3. Other chronic/incidental findings as described above. Thoracentesis Ultrasound 06/23/22 10:52 IMPRESSION: Uncomplicated ultrasound-guided RIGHT thoracentesis. Removal of 1000 cc clear yellow fluid Chest X-Ray 06/23/22 14:00 IMPRESSION: 1. Status post RIGHT thoracentesis. Nearly resolved RIGHT pleural effusion. No pneumothorax. 2. Small LEFT pleural effusion appears stable to slightly improved compared to 06/21/2022 3. No other significant changes. Laboratory Results WBC 6.9 10^3/uL (4.0-10.0) 06/23/22 04:53 RBC 4.91 10^6/uL (4.1-5.3) 06/23/22 04:53 Hgb 14.0 g/dL (11.5-15.3) 06/23/22 04:53 Hct 43.4 % (37.0-47.0) 06/23/22 04:53 MCV 88.4 fl (81-99) 06/23/22 04:53 MCH 28.5 pg (28.0-34.0) 06/23/22 04:53 MCHC 32.3 g/dL (30.0-36.0) 06/23/22 04:53 RDW 14.1 % (12.1-15.1) 06/23/22 04:53 Plt Count 254 10^3/cmm (130-400) 06/23/22 04:53 MPV 10.5 fL (7.4-10.4) H 06/23/22 04:53 Neut % (Auto) 59.0 % 06/23/22 04:53 Lymph % (Auto) 29.6 % 06/23/22 04:53 [place] % (Auto) 7.1 % 06/23/22 04:53 Eos % (Auto) 3.0 % 06/23/22 04:53 Baso % (Auto) 1.0 % 06/23/22 04:53 Neut # (Auto) 4.09 10^3/uL (1.8-7.7) 06/23/22 04:53 Lymph # (Auto) 2.1 10^3/uL (0.8-4.8) 06/23/22 04:53 [place] # (Auto) 0.5 10^3/uL (0.2-0.9) 06/23/22 04:53 Eos # (Auto) 0.2 10^3/uL (0.0-0.8) 06/23/22 04:53 Baso # (Auto) 0.1 10^3/uL (0.0-0.1) 06/23/22 04:53 Nucleated RBC % (auto) 0 % 06/23/22 04:53 Nucleated RBCs # 0.0 /100WBC 06/23/22 04:53 Differential Comment Yes 06/23/22 14:00 PT 15.60 SECONDS (12.1-14.9) H 06/23/22 06:11 INR 1.20 (0.8-1.2) 06/23/22 06:11 APTT 30.8 SECONDS (23.9-36.7) 06/23/22 06:11 D-Dimer 0.97 ug/mIFEU (0-0.59) H 06/22/22 06:44 Specimen Type Arterial 06/24/22 10:26 Sample Site Not Reportable 06/24/22 10:26 Ruiz Test N/a 06/24/22 10:26 A-a O2 Gradient 5.8 mmHg (5-10) 06/24/22 10:26 Hematocrit 49.4 % (37-47) H 06/24/22 10:26 Hgb O2 Saturation 61.5 % (95-100) L 06/24/22 10:26 Carboxyhemoglobin 1.3 %THgb (0.4-20.1) 06/24/22 10:26 Methemoglobin 0.2 % (0.4-1.5) L 06/24/22 10:26 Total Hemoglobin 16.1 g/dL (12-16) H 06/24/22 10:26 O2 Delivery Device Not Reportable 06/24/22 10:26 Supervisor Machine Workers ID Not Reportable 06/24/22 10:26 Sodium 138 mmol/L (136-145) 06/25/22 03:22 Potassium 3.5 mmol/L (3.5-5.1) 06/25/22 03:22 Chloride 94 mmol/L (98-107) L 06/25/22 03:22 Carbon Dioxide 37 mmol/L (22-29) H 06/25/22 03:22 Anion Gap 10.5 (5-19) 06/25/22 03:22 BUN 12 mg/dL (8-23) 06/25/22 03:22 Creatinine 0.8 mg/dL (0.5-0.9) 06/25/22 03:22 GFR Calculation 72.9 mL/min (90-130) L 06/25/22 03:22 Glucose 169 mg/dL (65-115) H 06/25/22 03:22 POC Glucose 242 mg/dL (70-110) H 06/25/22 12:08 Estimat Average Glucose 272 06/22/22 04:32 Hemoglobin A1c 11.1 % (4.0-6.0) H 06/22/22 04:32 Calculated Osmolality 290 mOsm/kg (285-295) 06/25/22 03:22 Lactate 1.2 mmol/L (0.5-2.2) 06/21/22 22:17 Calcium 9.1 mg/dL (8.5-10.5) 06/25/22 03:22 Phosphorus 3.5 mg/dL (2.5-4.5) 06/22/22 06:44 Magnesium 2.0 mg/dL (1.7-2.3) 06/24/22 04:30 Total Bilirubin 0.7 mg/dL (0.15-1.2) 06/25/22 03:22 GGT 129 U/L (5-36) H 06/22/22 06:44 AST 13 U/L (0-32) 06/25/22 03:22 ALT 8 U/L (0-33) 06/25/22 03:22 Alkaline Phosphatase 97 U/L (35-105) 06/25/22 03:22 Creatine Kinase 53 U/L (26-192) 06/21/22 22:17 Troponin T Baseline 28 ng/L (0-10) H 06/21/22 22:17 Troponin T 120 Minute 30.47 ng/L (0-10) H 06/22/22 00:30 Delta Troponin T 2.47 ABS# (0-10) 06/22/22 00:30 Troponin T Hi Sens 6Hr 30.71 ng/L (0-10) H 06/22/22 04:32 Troponin T Hi Sens 6Hr Delta 2.71 ng/L (0-12) 06/22/22 04:32 C-Reactive Protein 3.7 mg/L (0.0-4.9) 06/22/22 06:44 NT-Pro-B Natriuret Pep 3957 pg/mL (0-125) H 06/23/22 04:53 Total Protein 5.6 g/dL (6.6-8.7) L 06/25/22 03:22 Albumin 3.1 g/dL (3.5-5.2) L 06/25/22 03:22 Globulin 2.5 g/dL (1.3-4.6) 06/25/22 03:22 Triglycerides 97 mg/dL (0-150) 06/22/22 04:32 Cholesterol 152 mg/dL (0-200) 06/22/22 04:32 LDL Cholesterol, Calc 90 mg/dL (50-129) 06/22/22 04:32 HDL Cholesterol 43 mg/dL (60-100) L 06/22/22 04:32 LDL/HDL Ratio 2.09 RATIO (0.00-3.22) 06/22/22 04:32 Cholesterol/HDL Ratio 3.53 mg/dL (0.0-4.40) 06/22/22 04:32 Lipase 34 U/L (13-60) 06/21/22 22:17 Procalcitonin 0.20 ng/mL (0-0.5) 06/22/22 06:44 TSH 4.23 uIU/mL (0.27-4.20) H 06/22/22 06:44 Free T4 1.38 ng/dL (0.82-1.77) 06/22/22 06:44 Free T3 3.3 PG/ML (2.0-4.4) 06/22/22 06:44 Urine Color Yellow (Yellow) 06/22/22 00:15 Urine Appearance Clear (CLEAR) 06/22/22 00:15 Urine pH 8 (5-7) H 06/22/22 00:15 Ur Specific [place] 1.015 (1.005-1.030) 06/22/22 00:15 Urine Protein Neg (Negative) 06/22/22 00:15 Urine Glucose (UA) Norm (Normal) 06/22/22 00:15 Urine Ketones Negative (Negative) 06/22/22 00:15 Urine Blood Neg (Negative) 06/22/22 00:15 Urine Nitrate Negative (Negative) 06/22/22 00:15 Urine Bilirubin Neg (Negative) 06/22/22 00:15 Prot Sulfosalicylic Acd Negative (Negative) 06/22/22 00:15 Urine Urobilinogen Neg mg/dL (Negative) 06/22/22 00:15 Ur Leukocyte Esterase Negative (Negative) 06/22/22 00:15 Fluid Color Yellow 06/23/22 14:00 Fluid Appearance Clear 06/23/22 14:00 Fluid WBC 317 /uL 06/23/22 14:00 Fluid RBC 1.000 10^3/uL 06/23/22 14:00 Fluid Hematocrit Not Reportable 06/23/22 14:00 Fld Polynuclear WBCs # 0.019 06/23/22 14:00 Fld Polynuclear WBCs % 6.000 % 06/23/22 14:00 Fl Mononucl WBCs #(Auto) 0.298 06/23/22 14:00 Fl Mononuclear % Auto 94.000 % 06/23/22 14:00 Fluid Albumin 1.3 g/dL 06/23/22 14:00 Fluid Creatinine 0.63 (0.5-0.9) 06/23/22 14:00 Pleural pH 8.00 (6.5-7.5) H 06/23/22 14:00 Pleural Total Protein 1.8 g/dL 06/23/22 14:00 Pleural LDH 59 U/L 06/23/22 14:00 Pleural Glucose 110.0 mg/dL 06/23/22 14:00 Pleural Amylase 21.0 U/L 06/23/22 14:00 Pleural Triglycerides 16 mg/dL 06/23/22 14:00 Hepatitis A IgM Ab Non-reactive (Nonreactive) 06/22/22 06:44 Hep Bs Antigen Non-reactive (Nonreactive) 06/22/22 06:44 Hep B Core IgM Ab Non-reactive (Nonreactive) 06/22/22 06:44 Hepatitis C Antibody Non-reactive (Nonreactive) 06/22/22 06:44 Vitals Last Vital Signs Temp 98.2 F 06/25/22 07:24 Pulse 72 06/25/22 07:24 Resp 16 06/25/22 07:24 BP 118/65 06/25/22 12:00 Pulse Ox 93 06/25/22 12:35 O2 Del Method 06/25/22 07:24 O2 Flow Rate 3 06/25/22 07:22 Discharge Plan Discharge Patient Disposition: Home Condition: Stable Prescriptions: New clopidogrel 75 mg Tablet 75 mg PO DAILY Qty: 90 0RF aspirin 81 mg Tablet,Delayed Release (Dr/Ec) 81 mg PO DAILY Qty: 90 0RF simethicone 80 mg Tablet,Chewable 80 mg PO QID PRN (Reason: Flatulence) Qty: 20 0RF atorvastatin 40 mg tablet 40 mg PO QPM Qty: 90 0RF metoclopramide HCl 10 mg tablet 10 mg PO Q6H PRN (Reason: nausea and vomiting) Qty: 120 0RF Rx Instructions: 30 min before meals furosemide 20 mg tablet 20 mg PO DAILY Qty: 90 0RF metformin 1,000 mg tablet 1,000 mg PO BID Qty: 180 0RF empagliflozin 10 mg tablet 10 mg PO DAILY Qty: 90 0RF (DME) diabetic supplies, miscellan. Misc See Rx Instructions .Route Qty: 1 0RF Rx Instructions: As directed potassium chloride 10 mEq tablet extended release 10 meq PO DAILY Qty: 30 2RF Continued multivitamin Tablet 1 tab PO DAILY Vitamin C 500 mg Tablet 500 mg PO DAILY pantoprazole 40 mg tablet,delayed release (DR/EC) 40 mg PO QAM budesonide-formoterol 160-4.5 mcg/actuation HFA aerosol inhaler 2 puff INHALATION BID Discharge Orders: Discharge Order (Routine); Ordered 06/25/22 Ordered By: Nate Sheppard Other Ambulatory Orders: [place] gastric emptying [place] [id number] (Routine) Timeframe: 1 Week Facility: [facility] - Location: Radiology Ordered By: Nate Sheppard Referrals: Ashu Santos MD [Primary Care Provider] - 07/03/22 2:00 pm (Please follow-up with Dr. Santos on Jul 03 at 2:00P.M. If you have any questions or need to reschedule. Please call Centralized Scheduling will contact you to schedule NM Gastric Emptying St. If you have'nt heard from by afternoon. please call ) Dylan Garcia M.D [Physician] - 1 month (During your follow-up with Gris Buchanan you will be schedule an follow-up appointment with Dr. Garcia. ) Gris Buchanan FNP [Nurse Practitioner] - 07/01/22 2:00 pm (Please follow-up with Gris Buchanan on Jul 01 at 3:00P.M. If you have any questions or need to rescehdule. Please call ) Discharge Diet: Cardiac and Diabetic Discharge Activity: Increase activity as tolerated, Limit activity as instructed, As per PT/OT instructions and Oxygen as instructed Patient Instructions: Erythromycin (By mouth), Aspirin (By mouth), Clopidogrel (By mouth), Heart Failure (GEN), Coronary Angioplasty (DC), Coronary Artery Disease in Women (GEN), Prevent Cardiovascular Disease (GEN) Activity Restrictions/Additional Instructions: Follow up with your primary provider for indigestion, bloating, belching, gastric emptying study results. Review endoscopy results. Follow up with your primary provider and with cardiology for heart failure, coronary artery disease. As discussed do not interrupt plavix and aspirin treatment. Seek medical attention in case of bleeding. If your blood pressure rises more you may benefit from additional medications to optimize heart failure. Do not lift more than 5 lbs for 2 days. In case of bleeding, pulsatile mass or other concewrning symptoms in R wrist or hand seek medical attention immediately. Follow up with your primary doctor for reassessment of chest xray for resolution of pleural effusions. Follow up with your primary doctor for chronic cough to consider further assessment and specialist follow up. Follow up with your primary provider for reassessment of cervical lymphadenopathy for resolutionor referral to ENT for additional assessment. Follow up with your primary provider regarding mildly heterogenous somewhat ill- defined area of increased echogenicity near the dome of the liver measuring approximately 2.2 cm x 1.0 cm x 2.1 cm. Follow up also regarding gall bladder sludge history and gallbladder wall thickening seen on CT. Follow up with your primary provider and orthopedics regarding avascular necrosis of left femoral head incidentally seen on CT. Follow up with your primary doctor for renal scarring bilaterally incidentally seen on CT to consider further follow up with urology and/or nephrology. Follow up with your primary provider for continued work up of weight loss. Continue nutritional supplements with meals. Follow up with your primary provider for reassessment of thyroid function for 3- 4 weeks from now for subclinical hypothyroidism. Discharge Attestations Time Spent in Discharge Care*: greater than 30 min Quality Metrics Clinical Quality Measures [ No reported AMI, CVA or VTE this stay] Coding Level of Care Code 16351 Total time (in minutes) for Discharge: 45 Diagnoses Acute respiratory failure with hypoxia J96.01 Pulmonary edema J81.1 Bilateral pleural effusion J90 Systolic and diastolic CHF, acute I50.41 Diabetes mellitus E11.9 Congestive heart failure (CHF) I50.9
== END 2022-06-25 14:35 | disposition home or self-care (01) | DRG 246 ==
LOC: ER 06-22 00:41 → MEDSURG 06-22 01:29 → CSU 06-24 11:55
PROVIDERS: Family Medicine; Internal Medicine; Admitting Provider Student in an Organized Health Care Education/Training Program; Emergency Provider Emergency Medicine; Family Provider Nurse Practitioner; PCP Internal Medicine; Visit Provider Internal Medicine
PROC: 027034Z Dilation of Coronary Artery, One Artery with Drug-eluting Intraluminal Device, Percutaneous Approach (ICD-10-PCS; principal; 2022-06-24 10:00)
PROC: 027034Z Dilation of Coronary Artery, One Artery with Drug-eluting Intraluminal Device, Percutaneous Approach (ICD-10-PCS; 2022-06-24 10:00)
DX: I50.43 Acute on chronic combined systolic (congestive) and diastolic (congestive) heart failure (principal); I21.A1 Myocardial infarction type 2; E44.0 Moderate protein-calorie malnutrition; J90 Pleural effusion, not elsewhere classified; J98.11 Atelectasis; M87.852 Other osteonecrosis, left femur; I25.10 Atherosclerotic heart disease of native coronary artery without angina pectoris; E11.43 Type 2 diabetes mellitus with diabetic autonomic (poly)neuropathy; K31.84 Gastroparesis; I25.2 Old myocardial infarction; E03.8 Other specified hypothyroidism; Z87.891 Personal history of nicotine dependence; J44.9 Chronic obstructive pulmonary disease, unspecified; T38.1X6A Underdosing of thyroid hormones and substitutes, initial encounter; Z91.128 Patient's intentional underdosing of medication regimen for other reason; Z68.21 Body mass index [BMI] 21.0-21.9, adult; K76.9 Liver disease, unspecified; I25.5 Ischemic cardiomyopathy; R59.0 Localized enlarged lymph nodes; E87.6 Hypokalemia
CPT/HCPCS: 32555; 36415; 36416; 71045; 71275; 74177; 76705; 80048; 80053; 80061; 80074; 80503; 81003; 82042; 82150; 82550; 82570; 82810; 82945; 82962; 82977; 83036; 83605; 83615; 83690; 83735; 83880; 83986; 84100; 84145; 84157; 84439; 84443; 84478; 84481; 84484; 85014; 85025; 85347; 85378; 85610; 85730; 86140; 87015; 87040; 87070; 87075; 87077; 87116; 87205; 87206; 87641; 87801; 89050; 92610; 92978; 93005; 93306; 93460; 93970; 94760; 96365; 96366; 96372; 96375; 96376; 97110; 97161; 97165; 99152; 99153; 99285; C1725; C1751; C1753; C1769; C1874; C1887; C1894; C9600; J1644; J1650; J1815; J1940; J2250; J2405; J2543; J3010; J3480; J3490; J7030; J8597; Q9967

== ENCOUNTER → 2022-07-01 15:58 | Outpatient (BNVA) | payer OTHER, SELFPAY | PROVIDERS: Family Provider Nurse Practitioner; PCP Internal Medicine; Visit Provider Nurse Practitioner Family | DX: I50.9 Heart failure, unspecified (principal); I21.4 Non-ST elevation (NSTEMI) myocardial infarction; I25.10 Atherosclerotic heart disease of native coronary artery without angina pectoris | CPT/HCPCS: 80048 ==

== ENCOUNTER 2022-09-29 06:26 | Outpatient (CLI) | payer OTHER, SELFPAY ==
--- NOTE | 2022-09-29 06:15 | USCV_ITS ---
Tamra Hussein Age: 62 Gender: F : 1960 Exam Date: 09/29/2022 06:43 Ordering Phys: Gris Buchanan Technologist: CHER [place] [facility] [place]ication: CHRONIC HEART FAILURE BP: 100 / 60 HR: 85 Rhythm: Sinus Technical Quality: Adequate MEASUREMENTS (Male / Female) Normal Values 2D ECHO LVOT Diameter 2.0 cm LV Ejection Fraction MOD 2C 31.2 % LV Ejection Fraction 2C AL 28.1 % LA Diameter 2.6 cm LA Width 2.5 cm LA Height 4.5 cm RA Width 1.6 cm RA Height 3.2 cm Aorta at Sinotubular Diameter 2.2 cm IVC Diameter 1.1 cm M-MODE Aortic Annulus Diameter 2.6 cm LA Ao Ratio MM 0.8 MV E Point Septal Separation 1.4 cm DOPPLER AV Peak Velocity 136.0 cm/s LVOT Peak Velocity 93.0 cm/s AV Area Cont Eq vti 2.3 cm squared AV Area Cont Eq pk 2.1 cm squared MV Peak Velocity 127.0 cm/s MV Area PHT 4.6 cm squared Mitral E to A Ratio 0.7 MV E' Velocity 45.0 cm/s Mitral E to MV E' Ratio 11.1 Mitral E to LV E' Lateral Ratio 8.7 Mitral E to LV E' Septal Ratio 15.5 TR Peak Velocity 173.0 cm/s TR Peak Gradient 12.0 mmHg TR Mean Velocity 152.8 cm/s TR Mean Gradient 9.4 mmHg TR Velocity Time Integral 47.1 cm TV Peak E Velocity 55.0 cm/s Right Atrial Pressure 3.0 mmHg Pulmonary Artery Systolic Pressu 15.0 mmHg FINDINGS Left Ventricle LV systolic function was severely reduced with EF of 30-35%. Apical, apical anterior dumont are akinetic. Mild global hypokinesis seen. Grade 1 diastolic dysfunction. Right Ventricle Normal in size and function Right Atrium Normal in size Left Atrium Normal in size Mitral Valve Structurally normal mitral valve. Trace mitral regurgitation. Aortic Valve Structurally normal aortic valve. No significant stenosis or regurgitation. Tricuspid Valve Mild tricuspid regurgitation. Insufficient TR jet to evaluate RVSP. Pulmonic Valve Not well-visualized Pericardium Normal Aorta Normal in size IVC Appears to be normal CONCLUSIONS LV systolic function is severely reduced with EF of 30 -35%. Grade 1 diastolic dysfunction Trace mitral regurgitation Mild tricuspid regurgitation Compared to prior echocardiogram from 06/22/2022, no significant changes are seen. Dylan Garcia MD (Electronically Signed) Final Date: 10 October 2022 15:28 S
== END 2022-09-29 06:27 | disposition home or self-care (01) ==
LOC: RAD 06:29
PROVIDERS: PCP Internal Medicine; Visit Provider Internal Medicine
DX: I50.42 Chronic combined systolic (congestive) and diastolic (congestive) heart failure (principal); I21.4 Non-ST elevation (NSTEMI) myocardial infarction; I07.1 Rheumatic tricuspid insufficiency
CPT/HCPCS: 93306

== ENCOUNTER 2023-02-17 08:25 | Outpatient (CLI) | payer OTHER, SELFPAY ==
--- NOTE | 2023-02-17 08:00 | US_ITS ---
WS: [id number] THYROID ULTRASOUND HISTORY: Goiter COMPARISON: 12/20/2014 Right lobe: 3.7 cm x 3.1 cm x 6.6 cm (w x ap x l). Volume: 39.0 cm3. Diffuse marked enlargement of the thyroid. Suspect this is probably a very large dominant thyroid nod ule replacing nearly the entire gland. There are few areas of cystic component. No microcalcification . There is no increased vascularity. No extrathyroidal extension. Left lobe: 1.0 cm x 1.0 cm x 4.2 cm (w x ap x l). Volume: 2.0 cm3. Normal size and echotexture. No significant or dominant nodules are present. Isthmus: 0.5 cm. IMPRESSION: 1. Enlarged RIGHT thyroid. Thyroid has increased in size since the prior examination from 2014. This is probably a large thyroid nodule which is replacing nearly the entire gland. No extrathyroidal exte nsion and no adenopathy. Consider ultrasound-guided FNA versus surgical removal due to the large size . 2. Small caliber LEFT thyroid with no nodules.
== END 2023-02-17 08:26 | disposition home or self-care (01) ==
LOC: RAD 08:25
PROVIDERS: PCP Internal Medicine; Visit Provider Surgery
DX: E04.9 Nontoxic goiter, unspecified (principal)
CPT/HCPCS: 76536

== ENCOUNTER → 2023-10-02 14:23 | Outpatient (BNVA) | payer OTHER, SELFPAY | PROVIDERS: PCP Internal Medicine; Visit Provider Registered Nurse Neonatal Intensive Care | DX: S49.92XA Unspecified injury of left shoulder and upper arm, initial encounter (principal); W19.XXXA Unspecified fall, initial encounter; Y99.0 Civilian activity done for income or pay | CPT/HCPCS: 73030; 73562 ==

== ENCOUNTER 2024-01-31 05:48 | Emergency (ER) | payer SELFPAY ==
[2024-01-31] VITALS (15 sets, daily range): BP systolic 84–176; BP diastolic 54–86; PULSE 80–132; RESP 16–27; TEMP 38.8; O2SAT 91–100; BMI 27.4
--- NOTE | 2024-01-31 05:55 | XRR_ITS ---
PROCEDURE INFORMATION: Exam: XR Abdomen Exam date and time: 01/31/2024 6:05 AM Age: 63 years old Clinical indication: Vomiting; Abdominal pain; Generalized TECHNIQUE: Imaging protocol: Radiologic exam of the abdomen. Views: 2 Views. Upright and supine views. COMPARISON: CT abdomen pelvis w con* [id number] 06/21/2022 11:24 PM FINDINGS: Heart/Mediastinum: The heart, lungs, and mediastinum are normal. Gastrointestinal tract: Gas within mid abdominal small bowel loops. These are not dilated.. No bowel dilation. Intraperitoneal space: Normal. No free air. Bones/joints: Unremarkable for age. XR/XR acute abdomen series [id number] IMPRESSION: No acute findings.
--- NOTE | 2024-01-31 06:01 | ED_ITS ---
HPI - Abdominal Pain 2 General: Chief Complaint: Abdominal Pain Stated Complaint: Abdomen pain Time Seen by Provider: 01/31/24 05:55 History of Present Illness: 63-year-old female with a history of cor onary artery disease status post stents on Plavix, diabetes and gastroparesis who presents emergency room by ambulance with left lower quadrant abdominal pain, nausea and vomiting. She says this started about 11 PM last night. She is having an great deal of belching. She says her abdomen feels distended. She says this does not feel like when she has gastroparesis that this feels different. No fevers. No dysuria. No chest pain. No shortness of breath. No altered mental status. Related Data Home Medications Medication Instructions Recorded Confirmed ascorbic acid (vitamin C) 500 mg 500 mg PO DAILY 06/22/22 10/13/23 tablet (Vitamin C) budesonide-formoterol HFA 160 2 puff inhalation BID 06/22/22 10/13/23 mcg-4.5 mcg/actuation aerosol inhaler multivitamin 1 tab PO DAILY 06/22/22 10/13/23 pantoprazole 40 mg tablet,delayed 40 mg PO QAM 06/22/22 10/13/23 release glimepiride 4 mg tablet 4 mg PO DAILY 02/06/23 10/13/23 ondansetron HCl 4 mg tablet 4 mg PO DAILY 02/06/23 10/13/23 prednisone 20 mg tablet 20 mg PO DAILY 10/13/23 10/13/23 Previous Rx's Medication Instructions Recorded aspirin 81 mg tablet,delayed 81 mg PO DAILY #90 tabs 06/25/22 release atorvastatin 40 mg tablet 40 mg PO QPM #90 tabs 06/25/22 clopidogrel 75 mg tablet 75 mg PO DAILY #90 tabs 06/25/22 diabetic supplies, miscellan. #1 ea 06/25/22 furosemide 20 mg tablet 20 mg PO DAILY #90 tabs 06/25/22 potassium chloride 10 mEq 10 meq PO DAILY #30 tabs 06/25/22 tablet,extended release metoprolol tartrate 25 mg tablet 25 mg PO BID #180 tabs 05/19/23 cefdinir 300 mg capsule 300 mg PO BID 7 days #14 caps 01/31/24 hydrocodone 5 mg-acetaminophen 325 1 tab PO Q6H PRN pain #20 tabs 01/31/24 mg tablet ondansetron 4 mg disintegrating 4 mg PO Q8H PRN nausea and 01/31/24 tablet vomiting #10 tabs tamsulosin 0.4 mg capsule (Flomax) 0.4 mg PO DAILY #30 caps 01/31/24 Allergies Allergy/AdvReac Type Severity Reaction Status Date / Time codeine Allergy Unknown Verified 10/13/23 16:03 shahrzad Allergy Unknown Verified 10/13/23 16:03 trazodone Allergy Unknown Verified 10/13/23 16:03 Review of Systems 2 Narrative: Constitutional symptoms: Negative except as documented in HPI. Skin symptoms: Negative except as documented in HPI. Eye symptoms: Negative except as documented in HPI. ENMT symptoms: Negative except as documented in HPI. Respiratory symptoms: Negative except as documented in HPI. Cardiovascular symptoms: Negative except as documented in HPI. Gastrointestinal symptoms: Negative except as documented in HPI. Genitourinary symptoms: Negative except as documented in HPI. Musculoskeletal symptoms: Negative except as documented in HPI. Neurologic symptoms: Negative except as documented in HPI. Psychiatric symptoms: Negative except as documented in HPI. Endocrine symptoms: Negative except as documented in HPI. PFSH ED 2 PFSH: Medical History Diabetes Surgical History Hx of appendectomy History of left knee surgery Hx of heart artery stent Jun 2022 Family History Mother Diabetes Hypertension Father Cancer skin Social History Smoking and tobacco/nicotine status: former use of tobacco/nicotine Alcohol intake: never Substance/Drug Use: never Physical Exam 2 Narrative: EXAM NARRATIVE: General: Alert, no acute distress. Patient is belching continuously Skin: Warm, dry. Head: Normocephalic, atraumatic. Neck: Supple, trachea midline. Eye: Extraocular movements are intact. Ears, nose, mouth and throat: mucosa moist. Cardiovascular: Regular, Normal peripheral perfusion. Respiratory: Lungs are clear to auscultation, respirations are non-labored, breath sounds are equal, Symmetrical chest wall expansion. Gastrointestinal: Soft, left lower quadrant pain, Non distended Musculoskeletal: Normal ROM, no deformity. Neurological: Alert and oriented, No focal neurological deficit observed. Psychiatric: Cooperative, appropriate mood & affect. Course 2 Vital Signs: Vital signs: Vital Signs Pulse Rate 114 H 01/31/24 08:00 Respiratory Rate 22 H 01/31/24 08:00 Blood Pressure 176/62 01/31/24 06:31 Pulse Oximetry 99 01/31/24 08:00 Oxygen Delivery Me thod Room Air 01/31/24 05:51 MDM - Abdominal Pain Medical Decision Making Medical decision making: Differential diagnosis for this patient with nausea and vomiting including but not limited to and based on the above HPI, review of systems and physical exam: Urinary tract infection. Appendicitis. Cholecystis. colitis. small bowel obstruction. crohn's flare. pancreatitis. gastritis. peptic ulcer. cyclic vomiting. Viral illness. Influenza. COVID. Diverticulitis. Gastroparesis. - Workup - labwork and imaging ordered to evaluate, rule in and rule out above pathologies. Lab Review: Laboratory results were reviewed and interpreted by myself the emergency room physician. Mild leukocytosis with a white count of 13.8. Hemoglobin is normal at 15.6. No renal failure. BUN/creatinine are 18 and 0.8. Lactic acid is normal at 1.7. CRP is elevated at 17 mildly. Urine has 21-[address] of the abdomen pelvis with contrast: Patient has a distal UVJ 3 mm stone. Mild hydronephrosis. This was reviewed and interpreted by myself the emergency room physician. I also reviewed the radiology report. I reviewed the patient's medical record. Reexamination: Patient had become somewhat confused and tachycardic. At this point she spiked a fever to 101.5. No focal deficits. Just somewhat delirious. This improved some. Consultation: I spoke with Dr. Vincent Tompkins who is on-call for urology at [facility]. He request the patient be n.p.o. and admitted to the hospitalist service there. Consultation: I spoke with Dr. Boby Hussein who is on-call for the hospitalist service at [place]. She accepts patient in transfer. Assessment and plan: Ureterolithiasis Sepsis Fever Urinary tract infection Hyperglycemia History of coronary artery disease ?Patient with kidney stone and fever. Likely will need stenting. Definitely needs urology which we do not have here so she is being transferred to [facility]. ?Patient spiked a fever while she was here and became somewhat delirious and tachycardic. Her lactate is low but her white count is a little bit higher so she may have some early sepsis. -2 L normal saline bolus. Fluid volumes based on ideal body weight. -Rocephin has been administered. -Sepsis quality measures. -Lactic acid with a reflex was ordered. -Blood cultures were ordered. ?Fluids and 10 units insulin for her hyperglycemia. ?Patient is on Plavix for coronary disease. No chest pain here today. - Discussed findings and plan with patient and family. Answered any questions. - All laboratory values were reviewed and interpreted personally by myself, the ER physician - All imaging was reviewed and interpreted personally by myself, the ER physician. - Evaluation and treatment of this problem were appropriate in the emergency setting Critical care: -I spent a total of >35 minutes of critical care time managing the patient, independent of any other practitioner. -The time involved in the performance of separately reportable procedures was not counted towards critical care time. Lab Data 01/31/24 06:12 01/31/24 06:12 Labs/Radiology: Radiology Impressions Chest/Abdomen X-ray 01/31/24 05:55 IMPRESSION: No acute findings. Abdomen/Pelvis CT 01/31/24 06:33 IMPRESSION: 1. Mildly obstructing left UVJ calculus. 2. Subtle thickening and enhancement of the wall of the artery suggesting infarction pleural coronal clinically. 3. Left ovary is prominent for age. Consider ultrasound. Laboratory Results WBC 13.83 10^3/uL (3.29-11.43) H 01/31/24 06:12 RBC 5.26 10^6/uL (3.85-5.65) 01/31/24 06:12 Hgb 15.60 g/dL (11.27-16.99) 01/31/24 06:12 Hct 47.2 % (36-47) H 01/31/24 06:12 MCV 89.7 fl (85-98) 01/31/24 06:12 MCH 29.7 pg (27-33) 01/31/24 06:12 MCHC 33.1 g/dL (30-55) 01/31/24 06:12 RDW 12.3 % (12.1-15.1) 01/31/24 06:12 Plt Count 258 10^3/cmm (157-399) 01/31/24 06:12 MPV 10.0 fL (7.4-10.4) 01/31/24 06:12 Neut % (Auto) 88.9 % 01/31/24 06:12 Lymph % (Auto) 6.7 % 01/31/24 06:12 [place] % (Auto) 3.8 % 01/31/24 06:12 Eos % (Auto) 0.1 % 01/31/24 06:12 Baso % (Auto) 0.2 % 01/31/24 06:12 Neut # (Auto) 12.29 10^3/uL (1.8-7.7) H 01/31/24 06:12 Lymph # (Auto) 0.9 10^3/uL (0.8-4.8) 01/31/24 06:12 [place] # (Auto) 0.5 10^3/uL (0.2-0.9) 01/31/24 06:12 Eos # (Auto) 0.0 10^3/uL (0.0-0.8) 01/31/24 06:12 Baso # (Auto) 0.0 10^3/uL (0.0-0.1) 01/31/24 06:12 Nucleated RBC % (auto) 0 % 01/31/24 06:12 Nucleated RBCs # 0.0 /100WBC 01/31/24 06:12 Sodium 136 mmol/L (136-145) 01/31/24 06:12 Potassium 4.1 mmol/L (3.5-5.1) 01/31/24 06:12 Chloride 98 mmol/L (98-107) 01/31/24 06:12 Carbon Dioxide 26 mmol/L (22-29) 01/31/24 06:12 Anion Gap 16.1 (5-19) 01/31/24 06:12 BUN 18 mg/dL (8-23) 01/31/24 06:12 Creatinine 0.8 mg/dL (0.5-0.9) 01/31/24 06:12 GFR Calculation 72.4 mL/min (90-130) L 01/31/24 06:12 Glucose 350 mg/dL (65-115) H 01/31/24 06:12 Calculated Osmolality 298 mOsm/kg (285-295) H 01/31/24 06:12 Lactic Acid 1.7 mmol/L (0.5-2.2) 01/31/24 06:12 Calcium 9.1 mg/dL (8.5-10.5) 01/31/24 06:12 Total Bilirubin 0.6 mg/dL (0.15-1.2) 01/31/24 06:12 AST 16 U/L (0-32) 01/31/24 06:12 ALT 16 U/L (0-33) 01/31/24 06:12 Alkaline Phosphatase 111 U/L (35-105) H 01/31/24 06:12 C-Reactive Protein 16.8 mg/L (0.0-4.9) H 01/31/24 06:12 Total Protein 7.1 g/dL (6.6-8.7) 01/31/24 06:12 Albumin 3.9 g/dL (3.5-5.2) 01/31/24 06:12 Globulin 3.2 g/dL (1.3-4.6) 01/31/24 06:12 Lipase 37 U/L (13-60) 01/31/24 06:12 Urine Color Yellow (Yellow) 01/31/24 06:27 Urine Appearance Clear (CLEAR) 01/31/24 06:27 Urine pH 7.5 (5-7) 01/31/24 06:27 Ur Specific [place] 1.018 (1.005-1.030) 01/31/24 06:27 Urine Protein Negative (Negative) 01/31/24 06:27 Urine Glucose (UA) 2+ (Normal) H 01/31/24 06:27 Urine Ketones 2+ (Negative) H 01/31/24 06:27 Urine Blood Negative (Negative) 01/31/24 06:27 Urine Nitrate Negative (Negative) 01/31/24 06:27 Urine Bilirubin Negative (Negative) 01/31/24 06:27 Urine Urobilinogen 0.2 mg/dL (Negative) 01/31/24 06:27 Ur Leukocyte Esterase Trace (Negative) A 01/31/24 06:27 Urine RBC 0-2 /hpf (0-2) 01/31/24 06:27 Urine WBC 21-50 /hpf (0-5) H 01/31/24 06:27 Ur Squamous Epith Cells 0-5 /hpf (0-5) 01/31/24 06:27 Amorphous Sediment Not Reportable 01/31/24 06:27 Urine Bacteria Exceeds /hpf (NONE) 01/31/24 06:27 Hyaline Casts 0-4 /lpf H 01/31/24 06:27 All radiology interpretation(s) finalized by discharge Discharge Plan Discharge Patient Disposition: Xfer Short-Term Hosp Clinical Impression: Ureterolithiasis, Urinary tract infection, Fever, Sepsis, Acute metabolic encephalopathy, Hyperglycemia Condition: Stable Referrals: Obed Epps [Referring] - (Please call for an appointment.) Ashu Santos MD [Primary Care Provider] - Discharge Diet: Advance as tolerated Discharge Activity: Increase activity as tolerated Patient Instructions: Kidney Stones (ED) Activity Restrictions/Additional Instructions: Call for appointment with urology. If fever (temp >100.4) develops return to the emergency room immediately, as this is an emergency. Take nausea medication prior to taking pain medications. Thank you for choosing [facility] for your healthcare needs today. Please realize this is an emergency room and that we are providing you with a medical screening exam and this may not be complete and all inclusive of all the testing and or work up that you may need to determine your ailment or severity of your illness. You have been screened and evaluated and felt safe for discharge. Health conditions do change or evolve sometimes and as such it is important that you follow up with your Primary Doctor to be re checked, 3-5 days is a general good time frame for follow up. You are always welcome to return to the ED for re assessment if your symptoms are worsening or you have new concerns Coding Level of Care Code ED Gluing Machine Operator Automatic for Isra Larios
[2024-01-31] MEDS: ondansetron 2 mg/ML SDV 2 mL 8 MG IVP (06:03)
[2024-01-31 06:27] LABS: Basophils % 0.2 %; Eosinophils % 0.1 %; Hematocrit 47.2 % (36-47); Lymphocytes # 0.9 10^3/uL (0.8-4.8); Lymphocytes % 6.7 %; Mean Corpuscular HGB Conc 33.1 g/dL (30-55); Mean Corpuscular Hemoglobin 29.7 pg (27-33); Mean Corpuscular Volume 89.7 fl (85-98); Monocytes # 0.5 10^3/uL (0.2-0.9); Monocytes % 3.8 %; Neutrophils # 12.29 10^3/uL (1.8-7.7); Neutrophils % 88.9 %; Nucleated Red Blood Cells % 0 %; Platelet Count 258 10^3/cmm (157-399); Red Blood Count 5.26 10^6/uL (3.85-5.65); Red Cell Distribution Width 12.3 % (12.1-15.1); White Blood Count 13.83 10^3/uL (3.29-11.43)
--- NOTE | 2024-01-31 06:33 | CTR_ITS ---
PROCEDURE INFORMATION: Exam: CT Abdomen And Pelvis With Contrast Exam date and time: 01/31/2024 6:58 AM Age: 63 years old Clinical indication: Abdominal pain; Generalized TECHNIQUE: Imaging protocol: Computed tomography of the abdomen and pelvis with contrast. Radiation optimization: All CT scans at this facility use at least one of these dose optimization techniques: automated exposure control; mA and/or kV adjustment per patient size (includes targeted exams where dose is matched to clinical indication); or iterative reconstruction. Contrast material: OMNIPAQUE 350; Contrast volume: 100 ml; Contrast route: INTRAVENOUS (IV); COMPARISON: CT abdomen pelvis w con* [id number] 06/21/2022 11:24 PM RADIATION DOSE METRICS: Total DLP (mGy-cm): 750.9 FINDINGS: Liver: Normal. No mass. Gallbladder and biliary ducts: Normal. No calcified stones. No ductal dilation. Pancreas: Normal. No ductal dilation. Spleen: Normal. No splenomegaly. Adrenal glands: Normal. No mass. Kidneys and ureters: Focal scarring of the left kidney. 3 mm mildly obstructing left UVJ calculus. There is mild thickening and enhancement of the wall of the ureters suggesting infection. Correlate clinically. Stomach and bowel: Unremarkable. No obstruction. No mucosal thickening. Appendix: No evidence of appendicitis. Intraperitoneal space: Unremarkable. No free air. No significant fluid collection. Vasculature: Unremarkable. No abdominal aortic aneurysm. Lymph nodes: Small periaortic lymph nodes are not pathologically enlarged. Urinary bladder: Unremarkable as visualized. Reproductive: 2.9 cm left ovary. This probably contains a cyst. Bones/joints: Unremarkable. No acute fracture. Soft tissues: Unremarkable. CT/CT abdomen pelvis w con* [id number] IMPRESSION: 1. Mildly obstructing left UVJ calculus. 2. Subtle thickening and enhancement of the wall of the artery suggesting infarction pleural coronal clinically. 3. Left ovary is prominent for age. Consider ultrasound.
[2024-01-31] MEDS: prochlorperazine 10 mg/2 mL Inj IVP (06:40)
[2024-01-31] MEDS: diphenhydrAMINE 50 mg/mL SDV 1mL 25 MG IVP (06:41)
[2024-01-31] MEDS: HYDROmorphone 1 mg/mL INJ 1 mL IVP (06:43)
[2024-01-31 06:49] LABS: Lactic Sepsis W/Reflex 1.7 mmol/L (0.5-2.2)
[2024-01-31 06:50] LABS: Alanine Aminotransferase 16 U/L (0-33); Albumin Level 3.9 g/dL (3.5-5.2); Alkaline Phosphatase 111 U/L (35-105); Anion Gap 16.1 (5-19); Aspartate Amino Transferase 16 U/L (0-32); Blood Urea Nitrogen 18 mg/dL (8-23); C Reactive Protein 16.8 mg/L (0.0-4.9); Calcium 9.1 mg/dL (8.5-10.5); Carbon Dioxide 26 mmol/L (22-29); Chloride 98 mmol/L (98-107); Creatinine Clr Calc Pharmacy 70.2792; Globulin 3.2 g/dL (1.3-4.6); Glomerular Filtration Rate 72.4 mL/min (90-130); Glucose 350 mg/dL (65-115); Lipase 37 U/L (13-60); Osmolality Calculated 298 mOsm/kg (285-295); Potassium 4.1 mmol/L (3.5-5.1); Sodium 136 mmol/L (136-145); Total Bilirubin 0.6 mg/dL (0.15-1.2); Total Protein 7.1 g/dL (6.6-8.7)
[2024-01-31] MEDS: iohexol 350 mg/mL 500 mL Btl (per mL) IV (06:57)
[2024-01-31 07:54] LABS: Bilirubin Urine Negative (Negative); Blood Urine Negative (Negative); Glucose Urine UA 2+ (Normal); Ketones Urine 2+ (Negative); Leukocyte Esterase Urine Trace (Negative); Nitrate Urine Negative (Negative); Protein Urine Negative (Negative); Specific Gravity, Urine 1.018 (1.005-1.030); Urine Appearance Clear (CLEAR); Urine Color Yellow (Yellow); Urobilinogen Urine 0.2 mg/dL (Negative); pH Urine 7.5 (5-7)
[2024-01-31 07:57] LABS: Bacteria Urine EXCEEDS /hpf; Hyaline Casts Urine 0-4 /lpf; RBC Urine 0-2 /hpf (0-2); Squamous Epithelial Cell Urine 0-5 /hpf (0-5); WBC Urine 21-50 /hpf (0-5)
[2024-01-31 08:03] LABS: Add Urine Culture? Yes
[2024-01-31] MEDS: cefTRIAXone 1,000 mg SDV 1000 MG IVP (08:58)
[2024-01-31] MEDS: sodium chloride 0.9% 1,000 ML 999 ML IV ×2 (08:58→10:06)
[2024-01-31] MEDS: ketorolac 30 mg/mL INJ IVP (10:06)
[2024-01-31 10:31] LABS: Glucose Point of Care 258 mg/dL (70-110)
[2024-01-31] MEDS: insulin regular-human 100 units/1 mL 10 UNIT IVP (10:34)
== END 2024-01-31 12:52 | disposition short-term general hospital (02) ==
PROVIDERS: Emergency Provider Emergency Medicine; PCP Internal Medicine
DX: N20.1 Calculus of ureter (principal); N39.0 Urinary tract infection, site not specified; A41.9 Sepsis, unspecified organism; G93.41 Metabolic encephalopathy; E11.65 Type 2 diabetes mellitus with hyperglycemia; Z87.891 Personal history of nicotine dependence
CPT/HCPCS: 36416; 74022; 74177; 80053; 81001; 82962; 83605; 83690; 85025; 86140; 87040; 87077; 87086; 87150; 87186; 87205; 96361; 96374; 96375; 99285; J0696; J0780; J1170; J1200; J1815; J1885; J2405; J7030